=== PATIENT | female | born 1955 | race Caucasian/White ===

== ENCOUNTER → 2017-04-24 | Outpatient (CLI) | payer OTHER ==
[~2017-04-24] MED LIST: ACET500; ACET500 PO; AMLO10 PO; ASPI81EC PO; Acetaminophen325 M1 PO; BENZ100A PO; BUSP10 PO; CARV3.125 PO; CODACE30 PO; Cymbalta20 MG PO; DICL75ER PO; DICMIS50EC PO; DULERA 100 MCG/13 GM PO; Diclofenac Sod100 MG PO; FURO20 PO; FURO40 PO; GABA100 PO; GABA300 PO; GABA600 PO; HYDACE5325 PO; HYDCHL25 PO; HYDR1TAB94 PO; IBUP800 PO; LEVO750 PO; LISI20 PO; LISI5 PO; Lisinopril2.5 MG PO; METO25ER PO; METR500 PO; MIDO5 PO; Micro-K10 MEQ PO; NAPR500 PO; NICOTINE1 EAC1 TD; Norco 5-325 Ta1 EACH PO; Norco 7.5-3251 EACH PO; Norvasc5 MG PO; OMEP10ER PO; OMEP20ER PO; OMEP40CA12 PO; OXYACE5T PO; POTCHL10ER PO; POTCHL20ER PO; PRED10 PO; Percocet 5-3251 EACH PO; Prednisone10 MG PO; RANI150 PO; RXTRAM50 PO; Senexon8.6 MG PO; TOPI25 PO; TORSE20 PO; TRAM50 PO; TRAZ100 PO; TRAZ50 PO; Valium5 MG PO; Zofran Odt4 MG SL; [UNRECOGNIZED DRUG - CODE] PO
== END | disposition home or self-care (01) ==
LOC: LAB EV 12:51
DX: R82.90 Unspecified abnormal findings in urine (principal)
CPT/HCPCS: 87077; 87086; 87186

== ENCOUNTER 2017-08-16 08:11 | Inpatient (IN) | payer OTHER ==
[~2017-08-16] VITALS: Ht 175.3 cm; Wt 110.0 kg
[~2017-08-16 08:11] MED LIST changes: -Acetaminophen325 M1 PO; -Cymbalta20 MG PO; -Diclofenac Sod100 MG PO; -HYDR1TAB94 PO; -LISI5 PO; -Lisinopril2.5 MG PO; -METO25ER PO; -MIDO5 PO; -Micro-K10 MEQ PO; -NICOTINE1 EAC1 TD; -Senexon8.6 MG PO; -TOPI25 PO; -TRAZ100 PO; -[UNRECOGNIZED DRUG - CODE] PO
[2017-08-16 08:35] LABS: BASOPHILS PERCENT AUTO 1 % (0-2); EOSINOPHILS ABSOLUTE AUTO 0.35 K/mm3 (0.00-0.68); EOSINOPHILS PERCENT AUTO 2 % (0-6); Hematocrit 41.4 % (33.0-51.0); Hemoglobin 12.8 g/dL (11.5-16.0); IMMATURE GRAN ABSOLUTE AUTO 0.41 K/mm3 (0.00-0.10); IMMATURE GRAN PERCENT AUTO 3 % (0-1); LYMPHOCYTES ABSOLUTE AUTO 3.57 K/mm3 (0.84-5.20); LYMPHOCYTES PERCENT AUTO 23 % (21-46); MONOCYTES PERCENT AUTO 5 % (4-13); Mean Corpuscular HGB 29.1 pg (26.0-34.0); Mean Corpuscular HGB Conc 30.9 g/dL (31.5-36.5); Mean Corpuscular Volume 94 fL (80-100); Mean Platelet Volume 9.9 fL (9.1-12.4); NEUTROPHILS ABSOLUTE AUTO 10.01 K/mm3 (1.96-9.15); NEUTROPHILS PERCENT AUTO 66 % (41-73); NRBC ABSOLUTE 0.02 K/mm3 (0.00-0.02); NRBC Auto 0.1 /100 WBC (0.0-0.2); Platelet Count 200 K/mm3 (150-400); RDW Standard Deviation 48.2 fL (35.1-46.3); White Blood Cell Count 15.24 K/mm3 (4.00-11.30)
[2017-08-16 08:50] LABS: International Normalized Ratio 0.99; Prothrombin Time Results 10.3 Sec (9.7-11.5)
[2017-08-16 08:53] LABS: Alanine Aminotransfer (ALT/SGP 202 U/L (12-78); Albumin, Blood 3.1 g/dL (3.4-5.0); Alk Phos 68 U/L (50-136); Anion Gap 7 mmol/L (6-16); Aspartate Aminotrans (AST/SGOT 194 U/L (12-37); Bilirubin, Total 0.4 mg/dL (0.1-1.0); Blood Urea Nitrogen 22 mg/dL (8-24); Bun/Creatinine Ratio 25.9 (12.0-20.0); CO2, Blood 20 mmol/L (21-32); Calcium, Blood 8.4 mg/dL (8.5-10.1); Chloride, Blood 114 mmol/L (98-108); Creatinine, Blood 0.85 mg/dL (0.40-1.00); Globulin, Blood 3.2 g/dL (2.2-4.0); Glomerular Filtration Rate >60 (60-); Glucose, Blood 144 mg/dL (70-99); Potassium, Blood 3.9 mmol/L (3.5-5.5); Sodium, Blood 141 mmol/L (136-145); Total Protein, Blood 6.3 g/dL (6.4-8.2)
[2017-08-16 09:02] LABS: PCO2 Arterial 37.8 mmHg (35-45); PO2 Arterial 105 mmHg (80-100); pH Blood Arterial 7.35 (7.35-7.45)
[2017-08-16 09:20] LABS: Calcium, Ionized (POC) 1.18 mmol/L (1.10-1.46); Chloride (POC) 107 mmol/L (98-108); Creatinine (POC) 0.8 mg/dL (0.6-1.0); Glucose (ISTAT POC) 139 mg/dL (70-99); Hemoglobin (POC) 13.6 g/dL (12.0-16.0); Potassium (POC) 3.9 mmol/L (3.5-5.5); Sodium (POC) 141 mmol/L (135-148); Total CO2 (POC) 22 mmol/L (21-32)
[2017-08-16] MEDS ORDERED: HYDR1TAB94 PO (10:44)
[2017-08-16] MEDS ORDERED: TOPI25 PO (10:45)
[2017-08-16] MEDS ORDERED: Diclofenac Sod100 MG PO (10:45)
[2017-08-16] MEDS ORDERED: RANI150 PO (10:45)
[2017-08-16 10:50] LABS: U Amphetamine Screen Not Detected; U Barbituate Screen Not Detected; U Benzodiazapine Screen Not Detected; U Buprenorphine Screen Not Detected; U Cannabinoids Screen Not Detected; U Cocaine Screen Not Detected; U Methadone Screen Not Detected; U Methamphetamine Screen Not Detected; U Opiates Screen Not Detected; U Oxycodone Screen Not Detected; U Phencyclidine Screen Not Detected
[2017-08-16 10:51] LABS: U Propoxyphene Screen Not Detected
[2017-08-16 21:45] LABS: International Normalized Ratio 0.98; Prothrombin Time Results 10.2 Sec (9.7-11.5)
[2017-08-16 21:52] LABS: Anion Gap 7 mmol/L (6-16); Blood Urea Nitrogen 19 mg/dL (8-24); Bun/Creatinine Ratio 22.6 (12.0-20.0); CO2, Blood 22 mmol/L (21-32); Calcium, Blood 8.6 mg/dL (8.5-10.1); Chloride, Blood 115 mmol/L (98-108); Creatinine, Blood 0.84 mg/dL (0.40-1.00); Glomerular Filtration Rate >60 (60-); Glucose, Blood 95 mg/dL (70-99); Magnesium, Blood 2.3 mg/dL (1.6-2.4); Phosphorus, Blood 3.2 mg/dL (2.5-4.9); Potassium, Blood 3.7 mmol/L (3.5-5.5); Sodium, Blood 144 mmol/L (136-145)
[2017-08-16 22:04] LABS: Troponin I 0.733 ng/mL (0.000-0.040)
[2017-08-16 22:18] LABS: BASOPHILS ABSOLUTE AUTO 0.05 K/mm3 (0.00-0.23); BASOPHILS PERCENT AUTO 1 % (0-2); EOSINOPHILS PERCENT AUTO 1 % (0-6); Hematocrit 37.3 % (33.0-51.0); Hemoglobin 11.8 g/dL (11.5-16.0); IMMATURE GRAN ABSOLUTE AUTO 0.07 K/mm3 (0.00-0.10); IMMATURE GRAN PERCENT AUTO 1 % (0-1); LYMPHOCYTES ABSOLUTE AUTO 1.39 K/mm3 (0.84-5.20); LYMPHOCYTES PERCENT AUTO 16 % (21-46); MONOCYTES ABSOLUTE AUTO 0.82 K/mm3 (0.16-1.47); MONOCYTES PERCENT AUTO 9 % (4-13); Mean Corpuscular HGB 29.3 pg (26.0-34.0); Mean Corpuscular HGB Conc 31.6 g/dL (31.5-36.5); Mean Corpuscular Volume 93 fL (80-100); Mean Platelet Volume 9.4 fL (9.1-12.4); NEUTROPHILS ABSOLUTE AUTO 6.34 K/mm3 (1.96-9.15); NEUTROPHILS PERCENT AUTO 72 % (41-73); Platelet Count 172 K/mm3 (150-400); RDW Coefficient Variation 14.1 % (11.7-14.2); RDW Standard Deviation 48.1 fL (35.1-46.3); Red Blood Cell Count 4.03 M/mm3 (3.80-5.20); White Blood Cell Count 8.77 K/mm3 (4.00-11.30)
[2017-08-17 03:11] LABS: BASOPHILS ABSOLUTE AUTO 0.04 K/mm3 (0.00-0.23); BASOPHILS PERCENT AUTO 1 % (0-2); EOSINOPHILS ABSOLUTE AUTO 0.11 K/mm3 (0.00-0.68); EOSINOPHILS PERCENT AUTO 1 % (0-6); Hematocrit 45.7 % (33.0-51.0); Hemoglobin 14.8 g/dL (11.5-16.0); IMMATURE GRAN ABSOLUTE AUTO 0.05 K/mm3 (0.00-0.10); IMMATURE GRAN PERCENT AUTO 1 % (0-1); LYMPHOCYTES ABSOLUTE AUTO 1.17 K/mm3 (0.84-5.20); LYMPHOCYTES PERCENT AUTO 14 % (21-46); MONOCYTES ABSOLUTE AUTO 0.79 K/mm3 (0.16-1.47); MONOCYTES PERCENT AUTO 9 % (4-13); Mean Corpuscular HGB 29.4 pg (26.0-34.0); Mean Corpuscular HGB Conc 32.4 g/dL (31.5-36.5); Mean Corpuscular Volume 91 fL (80-100); NEUTROPHILS ABSOLUTE AUTO 6.38 K/mm3 (1.96-9.15); NEUTROPHILS PERCENT AUTO 75 % (41-73); RDW Coefficient Variation 14.1 % (11.7-14.2); RDW Standard Deviation 46.9 fL (35.1-46.3); Red Blood Cell Count 5.03 M/mm3 (3.80-5.20); White Blood Cell Count 8.54 K/mm3 (4.00-11.30)
[2017-08-17 03:14] LABS: Mean Platelet Volume 11.6 fL (9.1-12.4); Platelet Count 71 K/mm3 (150-400)
[2017-08-17 03:35] LABS: Alanine Aminotransfer (ALT/SGP 176 U/L (12-78); Albumin, Blood 3.1 g/dL (3.4-5.0); Alk Phos 72 U/L (50-136); Anion Gap 7 mmol/L (6-16); Aspartate Aminotrans (AST/SGOT 100 U/L (12-37); Bilirubin, Total 0.4 mg/dL (0.1-1.0); Blood Urea Nitrogen 16 mg/dL (8-24); CO2, Blood 24 mmol/L (21-32); Calcium, Blood 8.5 mg/dL (8.5-10.1); Chloride, Blood 114 mmol/L (98-108); Creatinine, Blood 0.67 mg/dL (0.40-1.00); Globulin, Blood 3.2 g/dL (2.2-4.0); Glomerular Filtration Rate >60 (60-); Glucose, Blood 111 mg/dL (70-99); Potassium, Blood 3.3 mmol/L (3.5-5.5); Sodium, Blood 145 mmol/L (136-145); Total Protein, Blood 6.3 g/dL (6.4-8.2); Troponin I 0.444 ng/mL (0.000-0.040)
[2017-08-17 05:08] LABS: PCO2 Arterial 34.7 mmHg (35-45); PO2 Arterial 77.1 mmHg (80-100); pH Blood Arterial 7.41 (7.35-7.45)
[2017-08-17 10:30] LABS: BASOPHILS ABSOLUTE AUTO 0.02 K/mm3 (0.00-0.23); BASOPHILS PERCENT AUTO 0 % (0-2); EOSINOPHILS ABSOLUTE AUTO 0.04 K/mm3 (0.00-0.68); EOSINOPHILS PERCENT AUTO 1 % (0-6); Hematocrit 43.3 % (33.0-51.0); Hemoglobin 14.2 g/dL (11.5-16.0); IMMATURE GRAN ABSOLUTE AUTO 0.05 K/mm3 (0.00-0.10); IMMATURE GRAN PERCENT AUTO 1 % (0-1); LYMPHOCYTES ABSOLUTE AUTO 0.71 K/mm3 (0.84-5.20); LYMPHOCYTES PERCENT AUTO 10 % (21-46); MONOCYTES ABSOLUTE AUTO 0.46 K/mm3 (0.16-1.47); MONOCYTES PERCENT AUTO 6 % (4-13); Mean Corpuscular HGB 29.2 pg (26.0-34.0); Mean Corpuscular HGB Conc 32.8 g/dL (31.5-36.5); Mean Corpuscular Volume 89 fL (80-100); NEUTROPHILS ABSOLUTE AUTO 5.91 K/mm3 (1.96-9.15); NEUTROPHILS PERCENT AUTO 82 % (41-73); RDW Coefficient Variation 13.9 % (11.7-14.2); RDW Standard Deviation 45.1 fL (35.1-46.3); Red Blood Cell Count 4.86 M/mm3 (3.80-5.20); White Blood Cell Count 7.19 K/mm3 (4.00-11.30)
[2017-08-17 10:34] LABS: Mean Platelet Volume 10.3 fL (9.1-12.4); Platelet Count 107 K/mm3 (150-400)
[2017-08-17 10:38] LABS: International Normalized Ratio 0.98; Prothrombin Time Results 10.2 Sec (9.7-11.5)
[2017-08-17 11:49] LABS: Anion Gap 11 mmol/L (6-16); Blood Urea Nitrogen 13 mg/dL (8-24); Bun/Creatinine Ratio 21.5 (12.0-20.0); CO2, Blood 21 mmol/L (21-32); Calcium, Blood 8.5 mg/dL (8.5-10.1); Chloride, Blood 116 mmol/L (98-108); Creatinine, Blood 0.61 mg/dL (0.40-1.00); Glomerular Filtration Rate >60 (60-); Glucose, Blood 94 mg/dL (70-99); Potassium, Blood 2.8 mmol/L (3.5-5.5); Sodium, Blood 148 mmol/L (136-145)
[2017-08-18 04:18] LABS: BASOPHILS ABSOLUTE AUTO 0.03 K/mm3 (0.00-0.23); BASOPHILS PERCENT AUTO 0 % (0-2); EOSINOPHILS ABSOLUTE AUTO 0.06 K/mm3 (0.00-0.68); EOSINOPHILS PERCENT AUTO 1 % (0-6); Hematocrit 39.8 % (33.0-51.0); Hemoglobin 12.8 g/dL (11.5-16.0); IMMATURE GRAN ABSOLUTE AUTO 0.04 K/mm3 (0.00-0.10); IMMATURE GRAN PERCENT AUTO 1 % (0-1); LYMPHOCYTES ABSOLUTE AUTO 1.01 K/mm3 (0.84-5.20); LYMPHOCYTES PERCENT AUTO 12 % (21-46); MONOCYTES ABSOLUTE AUTO 0.65 K/mm3 (0.16-1.47); MONOCYTES PERCENT AUTO 7 % (4-13); Mean Corpuscular HGB 28.7 pg (26.0-34.0); Mean Corpuscular HGB Conc 32.2 g/dL (31.5-36.5); Mean Corpuscular Volume 89 fL (80-100); NEUTROPHILS ABSOLUTE AUTO 7.01 K/mm3 (1.96-9.15); NEUTROPHILS PERCENT AUTO 80 % (41-73); Platelet Count 166 K/mm3 (150-400); RDW Coefficient Variation 14.6 % (11.7-14.2); RDW Standard Deviation 46.5 fL (35.1-46.3); Red Blood Cell Count 4.46 M/mm3 (3.80-5.20)
[2017-08-18 04:36] LABS: Anion Gap 6 mmol/L (6-16); Blood Urea Nitrogen 10 mg/dL (8-24); Bun/Creatinine Ratio 13.3 (12.0-20.0); CO2, Blood 23 mmol/L (21-32); Chloride, Blood 121 mmol/L (98-108); Creatinine, Blood 0.75 mg/dL (0.40-1.00); Glomerular Filtration Rate >60 (60-); Glucose, Blood 98 mg/dL (70-99); Sodium, Blood 150 mmol/L (136-145)
[2017-08-18 05:15] LABS: PCO2 Arterial 33.1 mmHg (35-45); PO2 Arterial 87.4 mmHg (80-100)
[2017-08-18 11:43] LABS: Anion Gap 7 mmol/L (6-16); Blood Urea Nitrogen 9 mg/dL (8-24); Bun/Creatinine Ratio 12.7 (12.0-20.0); CO2, Blood 22 mmol/L (21-32); Calcium, Blood 8.1 mg/dL (8.5-10.1); Chloride, Blood 118 mmol/L (98-108); Creatinine, Blood 0.71 mg/dL (0.40-1.00); Glomerular Filtration Rate >60 (60-); Glucose, Blood 91 mg/dL (70-99); Potassium, Blood 3.6 mmol/L (3.5-5.5); Sodium, Blood 147 mmol/L (136-145)
[2017-08-19 04:51] LABS: BASOPHILS ABSOLUTE AUTO 0.03 K/mm3 (0.00-0.23); BASOPHILS PERCENT AUTO 1 % (0-2); EOSINOPHILS PERCENT AUTO 2 % (0-6); Hematocrit 34.2 % (33.0-51.0); IMMATURE GRAN ABSOLUTE AUTO 0.02 K/mm3 (0.00-0.10); IMMATURE GRAN PERCENT AUTO 0 % (0-1); LYMPHOCYTES ABSOLUTE AUTO 1.47 K/mm3 (0.84-5.20); LYMPHOCYTES PERCENT AUTO 27 % (21-46); MONOCYTES ABSOLUTE AUTO 0.53 K/mm3 (0.16-1.47); MONOCYTES PERCENT AUTO 10 % (4-13); Mean Corpuscular HGB 28.9 pg (26.0-34.0); Mean Corpuscular HGB Conc 32.2 g/dL (31.5-36.5); Mean Corpuscular Volume 90 fL (80-100); Mean Platelet Volume 10.5 fL (9.1-12.4); NEUTROPHILS PERCENT AUTO 61 % (41-73); Platelet Count 135 K/mm3 (150-400); RDW Coefficient Variation 14.6 % (11.7-14.2); RDW Standard Deviation 47.8 fL (35.1-46.3); Red Blood Cell Count 3.81 M/mm3 (3.80-5.20); White Blood Cell Count 5.55 K/mm3 (4.00-11.30)
[2017-08-19 05:39] LABS: Alanine Aminotransfer (ALT/SGP 80 U/L (12-78); Albumin, Blood 2.3 g/dL (3.4-5.0); Albumin/Globulin Ratio 0.8 (0.8-1.8); Alk Phos 46 U/L (50-136); Anion Gap 9 mmol/L (6-16); Aspartate Aminotrans (AST/SGOT 20 U/L (12-37); Bilirubin, Total 0.5 mg/dL (0.1-1.0); Blood Urea Nitrogen 7 mg/dL (8-24); Bun/Creatinine Ratio 9.7 (12.0-20.0); CO2, Blood 22 mmol/L (21-32); Calcium, Blood 7.9 mg/dL (8.5-10.1); Chloride, Blood 118 mmol/L (98-108); Creatinine, Blood 0.72 mg/dL (0.40-1.00); Globulin, Blood 2.9 g/dL (2.2-4.0); Glomerular Filtration Rate >60 (60-); Glucose, Blood 85 mg/dL (70-99); Magnesium, Blood 1.8 mg/dL (1.6-2.4); Potassium, Blood 3.6 mmol/L (3.5-5.5); Sodium, Blood 149 mmol/L (136-145); Total Protein, Blood 5.2 g/dL (6.4-8.2)
[2017-08-19] MEDS ORDERED: FURO20 PO (13:33)
[2017-08-19] MEDS ORDERED: Micro-K10 MEQ PO (13:35)
[2017-08-19] MEDS ORDERED: TRAZ100 PO (13:37)
[2017-08-19] MEDS ORDERED: TRAM50 PO (13:49)
[2017-08-20 03:38] LABS: BASOPHILS ABSOLUTE AUTO 0.04 K/mm3 (0.00-0.23); BASOPHILS PERCENT AUTO 1 % (0-2); EOSINOPHILS ABSOLUTE AUTO 0.13 K/mm3 (0.00-0.68); EOSINOPHILS PERCENT AUTO 2 % (0-6); Hematocrit 33.9 % (33.0-51.0); Hemoglobin 10.8 g/dL (11.5-16.0); IMMATURE GRAN ABSOLUTE AUTO 0.02 K/mm3 (0.00-0.10); IMMATURE GRAN PERCENT AUTO 0 % (0-1); LYMPHOCYTES ABSOLUTE AUTO 1.59 K/mm3 (0.84-5.20); LYMPHOCYTES PERCENT AUTO 25 % (21-46); MONOCYTES PERCENT AUTO 10 % (4-13); Mean Corpuscular HGB 29.2 pg (26.0-34.0); Mean Corpuscular HGB Conc 31.9 g/dL (31.5-36.5); Mean Corpuscular Volume 92 fL (80-100); NEUTROPHILS ABSOLUTE AUTO 3.87 K/mm3 (1.96-9.15); NEUTROPHILS PERCENT AUTO 62 % (41-73); RDW Coefficient Variation 14.3 % (11.7-14.2); White Blood Cell Count 6.25 K/mm3 (4.00-11.30)
[2017-08-20 03:45] LABS: Mean Platelet Volume 10.6 fL (9.1-12.4); Platelet Count 89 K/mm3 (150-400)
[2017-08-20 04:03] LABS: Alanine Aminotransfer (ALT/SGP 83 U/L (12-78); Albumin, Blood 2.4 g/dL (3.4-5.0); Albumin/Globulin Ratio 0.8 (0.8-1.8); Alk Phos 46 U/L (50-136); Anion Gap 4 mmol/L (6-16); Aspartate Aminotrans (AST/SGOT 37 U/L (12-37); Bilirubin, Total 0.4 mg/dL (0.1-1.0); Blood Urea Nitrogen 18 mg/dL (8-24); Bun/Creatinine Ratio 23.3 (12.0-20.0); CO2, Blood 25 mmol/L (21-32); Calcium, Blood 8.3 mg/dL (8.5-10.1); Chloride, Blood 116 mmol/L (98-108); Creatinine, Blood 0.77 mg/dL (0.40-1.00); Glomerular Filtration Rate >60 (60-); Glucose, Blood 87 mg/dL (70-99); Sodium, Blood 145 mmol/L (136-145); Total Protein, Blood 5.4 g/dL (6.4-8.2)
== END 2017-08-20 14:17 | disposition short-term general hospital (02) | DRG 296 ==
LOC: ER 08:11 → ICUW 10:03
PROVIDERS: Emergency Medicine; Internal Medicine; Internal Medicine Critical Care Medicine; Internal Medicine Pulmonary Disease
PROC: 0BH17EZ Insertion of Endotracheal Airway into Trachea, Via Natural or Artificial Opening (ICD-10-PCS; principal; 2017-08-16)
PROC: 5A1935Z Respiratory Ventilation, Less than 24 Consecutive Hours (ICD-10-PCS; 2017-08-16)
DX: I46.9 Cardiac arrest, cause unspecified (principal); R40.20 Unspecified coma; J96.01 Acute respiratory failure with hypoxia; J18.9 Pneumonia, unspecified organism; E87.0 Hyperosmolality and hypernatremia; I50.22 Chronic systolic (congestive) heart failure; F15.20 Other stimulant dependence, uncomplicated; I42.9 Cardiomyopathy, unspecified; E87.1 Hypo-osmolality and hyponatremia; I49.01 Ventricular fibrillation; I10 Essential (primary) hypertension; K21.9 Gastro-esophageal reflux disease without esophagitis; I25.2 Old myocardial infarction
CPT/HCPCS: 31500; 31720; 36415; 36569; 36600; 51702; 70450; 71045; 72125; 80047; 80048; 80053; 82803; 82947; 83605; 83735; 84100; 84145; 84484; 85014; 85025; 85610; 85730; 87040; 87070; 87205; 93005; 93010; 93306; 93308; 94002; 94003; 94762; 96365; 96375; 99291; 99292; C1751; C9113; J0330; J0360; J1650; J1885; J2060; J2250; J2543; J3010; J3480; J7030; J7050

== ENCOUNTER → 2017-08-28 | Outpatient (CLI) | payer OTHER ==
[~2017-08-28] MED LIST changes: +Diclofenac Sod100 MG PO; +HYDR1TAB94 PO; +Micro-K10 MEQ PO; +TOPI25 PO; +TRAZ100 PO
[2017-08-28 14:17] LABS: Albumin, Blood 3.4 g/dL (3.4-5.0); Albumin/Globulin Ratio 0.8 (0.8-1.8); Bilirubin, Total 0.4 mg/dL (0.1-1.0); Bun/Creatinine Ratio 29.2 (12.0-20.0); Calcium, Blood 9.2 mg/dL (8.5-10.1); Creatinine, Blood 0.96 mg/dL (0.40-1.00); Globulin, Blood 4.1 g/dL (2.2-4.0); Potassium, Blood 3.8 mmol/L (3.5-5.5); Total Protein, Blood 7.5 g/dL (6.4-8.2)
== END ==
LOC: LAB SHORT 13:55 → LAB EV 13:55
PROVIDERS: Physician Assistant
DX: E87.5 Hyperkalemia (principal)
CPT/HCPCS: 80053

== ENCOUNTER 2017-10-30 13:36 | Emergency (ER) | payer MEDICARE, OTHER ==
[~2017-10-30] VITALS: Ht 170.2 cm; Wt 104.3 kg
[2017-10-30 14:11] LABS: BASOPHILS ABSOLUTE AUTO 0.06 K/mm3 (0.00-0.23); BASOPHILS PERCENT AUTO 1 % (0-2); EOSINOPHILS ABSOLUTE AUTO 0.35 K/mm3 (0.00-0.68); EOSINOPHILS PERCENT AUTO 5 % (0-6); Hematocrit 40.9 % (33.0-51.0); Hemoglobin 13.3 g/dL (11.5-16.0); IMMATURE GRAN ABSOLUTE AUTO 0.02 K/mm3 (0.00-0.10); IMMATURE GRAN PERCENT AUTO 0 % (0-1); LYMPHOCYTES ABSOLUTE AUTO 1.79 K/mm3 (0.84-5.20); LYMPHOCYTES PERCENT AUTO 26 % (21-46); MONOCYTES ABSOLUTE AUTO 0.49 K/mm3 (0.16-1.47); MONOCYTES PERCENT AUTO 7 % (4-13); Mean Corpuscular HGB 30.3 pg (26.0-34.0); Mean Corpuscular HGB Conc 32.5 g/dL (31.5-36.5); Mean Corpuscular Volume 93 fL (80-100); Mean Platelet Volume 10.8 fL (9.1-12.4); NEUTROPHILS ABSOLUTE AUTO 4.21 K/mm3 (1.96-9.15); NEUTROPHILS PERCENT AUTO 61 % (41-73); Platelet Count 149 K/mm3 (150-400); RDW Coefficient Variation 13.3 % (11.7-14.2); RDW Standard Deviation 45.5 fL (35.1-46.3); Red Blood Cell Count 4.39 M/mm3 (3.80-5.20); White Blood Cell Count 6.92 K/mm3 (4.00-11.30)
[2017-10-30 14:26] LABS: Alanine Aminotransfer (ALT/SGP 16 U/L (12-78); Albumin/Globulin Ratio 0.9 (0.8-1.8); Alk Phos 58 U/L (50-136); Anion Gap 8 mmol/L (6-16); Aspartate Aminotrans (AST/SGOT 17 U/L (12-37); Bilirubin, Total 0.3 mg/dL (0.1-1.0); Blood Urea Nitrogen 14 mg/dL (8-24); Bun/Creatinine Ratio 19.3 (12.0-20.0); CO2, Blood 25 mmol/L (21-32); Calcium, Blood 8.5 mg/dL (8.5-10.1); Chloride, Blood 110 mmol/L (98-108); Creatinine, Blood 0.73 mg/dL (0.40-1.00); Globulin, Blood 3.2 g/dL (2.2-4.0); Glomerular Filtration Rate >60 (60-); Glucose, Blood 103 mg/dL (70-99); Potassium, Blood 3.6 mmol/L (3.5-5.5); Sodium, Blood 143 mmol/L (136-145); Total Protein, Blood 6.2 g/dL (6.4-8.2); Troponin I <0.015 ng/mL (0.000-0.040)
== END 2017-10-30 16:05 | disposition home or self-care (01) ==
LOC: ER 13:36
PROVIDERS: Emergency Medicine
DX: R53.1 Weakness (principal); M54.2 Cervicalgia; R51 Headache; I10 Essential (primary) hypertension; K21.9 Gastro-esophageal reflux disease without esophagitis; F17.290 Nicotine dependence, other tobacco product, uncomplicated; Z79.899 Other long term (current) drug therapy; Z95.810 Presence of automatic (implantable) cardiac defibrillator
CPT/HCPCS: 36415; 70450; 71045; 80053; 84484; 85025; 93005; 93010; 99284

== ENCOUNTER 2017-12-14 08:36 | Day surgery (SDC) | payer MEDICARE, OTHER | END 2017-12-14 22:37 | disposition home or self-care (01) | LOC: RAD 08:36 | PROC: BP281ZZ Computerized Tomography (CT Scan) of Right Shoulder using Low Osmolar Contrast (ICD-10-PCS; principal; 2017-12-14) | DX: S46.811A Strain of other muscles, fascia and tendons at shoulder and upper arm level, right arm, initial encounter (principal); M12.811 Other specific arthropathies, not elsewhere classified, right shoulder; S22.31XD Fracture of one rib, right side, subsequent encounter for fracture with routine healing | CPT/HCPCS: 20610; 23350; 73040; 73201; 77002; Q9967 ==

== ENCOUNTER 2018-01-16 06:10 | Day surgery (SDC) | payer MEDICARE, OTHER ==
[~2018-01-16] VITALS: Ht 170.2 cm; Wt 108.9 kg
[2018-01-16] MEDS ORDERED: METO25ER PO (06:44)
[2018-01-16] MEDS ORDERED: Cymbalta20 MG (06:44)
[2018-01-16] MEDS ORDERED: Lisinopril2.5 MG (06:47)
[2018-01-16] MEDS ORDERED: TORSE20 PO (06:47)
[2018-01-16] MEDS ORDERED: Senexon8.6 MG PO (06:48)
== END 2018-01-16 14:00 | disposition home or self-care (01) ==
LOC: ORSCSDS 06:10
PROVIDERS: Orthopaedic Surgery
PROC: 0LS14ZZ Reposition Right Shoulder Tendon, Percutaneous Endoscopic Approach (ICD-10-PCS; principal; 2018-01-16 07:30)
PROC: 0RNJ4ZZ Release Right Shoulder Joint, Percutaneous Endoscopic Approach (ICD-10-PCS; principal; 2018-01-16 07:30)
PROC: 0LQ14ZZ Repair Right Shoulder Tendon, Percutaneous Endoscopic Approach (ICD-10-PCS; principal; 2018-01-16 07:30)
DX: M75.111 Incomplete rotator cuff tear or rupture of right shoulder, not specified as traumatic (principal); M75.41 Impingement syndrome of right shoulder; S46.111A Strain of muscle, fascia and tendon of long head of biceps, right arm, initial encounter; I10 Essential (primary) hypertension; I50.9 Heart failure, unspecified; G47.33 Obstructive sleep apnea (adult) (pediatric); E66.01 Morbid (severe) obesity due to excess calories; Z68.37 Body mass index [BMI] 37.0-37.9, adult; Z79.899 Other long term (current) drug therapy
CPT/HCPCS: C1713; J0690; J1100; J1885; J2250; J2405; J2710; J3010; J7120

== ENCOUNTER 2018-02-24 19:15 | Observation (INO) | payer MEDICARE, OTHER ==
[~2018-02-24] VITALS: Ht 170.2 cm; Wt 104.3 kg
[~2018-02-24 19:15] MED LIST changes: +Cymbalta20 MG PO; +Lisinopril2.5 MG PO; +METO25ER PO; +Senexon8.6 MG PO
[2018-02-24 20:06] LABS: BASOPHILS ABSOLUTE AUTO 0.05 K/mm3 (0.00-0.23); BASOPHILS PERCENT AUTO 1 % (0-2); EOSINOPHILS ABSOLUTE AUTO 0.31 K/mm3 (0.00-0.68); EOSINOPHILS PERCENT AUTO 4 % (0-6); Hemoglobin 14.9 g/dL (11.5-16.0); IMMATURE GRAN ABSOLUTE AUTO 0.02 K/mm3 (0.00-0.10); IMMATURE GRAN PERCENT AUTO 0 % (0-1); LYMPHOCYTES ABSOLUTE AUTO 2.08 K/mm3 (0.84-5.20); LYMPHOCYTES PERCENT AUTO 30 % (21-46); MONOCYTES ABSOLUTE AUTO 0.48 K/mm3 (0.16-1.47); MONOCYTES PERCENT AUTO 7 % (4-13); Mean Corpuscular HGB 30.2 pg (26.0-34.0); Mean Corpuscular HGB Conc 32.4 g/dL (31.5-36.5); Mean Corpuscular Volume 93 fL (80-100); NEUTROPHILS ABSOLUTE AUTO 4.03 K/mm3 (1.96-9.15); NEUTROPHILS PERCENT AUTO 58 % (41-73); RDW Coefficient Variation 13.5 % (11.7-14.2); RDW Standard Deviation 45.7 fL (35.1-46.3); Red Blood Cell Count 4.94 M/mm3 (3.80-5.20); White Blood Cell Count 6.97 K/mm3 (4.00-11.30)
[2018-02-24 20:25] LABS: Alanine Aminotransfer (ALT/SGP 19 U/L (12-78); Albumin, Blood 3.5 g/dL (3.4-5.0); Alk Phos 56 U/L (50-136); Anion Gap 9 mmol/L (6-16); Aspartate Aminotrans (AST/SGOT 15 U/L (12-37); Bilirubin, Total 0.4 mg/dL (0.1-1.0); Blood Urea Nitrogen 15 mg/dL (8-24); Bun/Creatinine Ratio 17.7 (12.0-20.0); CO2, Blood 27 mmol/L (21-32); Calcium, Blood 9.1 mg/dL (8.5-10.1); Chloride, Blood 105 mmol/L (98-108); Creatinine, Blood 0.85 mg/dL (0.40-1.00); Globulin, Blood 3.5 g/dL (2.2-4.0); Glomerular Filtration Rate >60 (60-); Glucose, Blood 97 mg/dL (70-99); Potassium, Blood 3.4 mmol/L (3.5-5.5); Sodium, Blood 141 mmol/L (136-145); Troponin I <0.015 ng/mL (0.000-0.040)
[2018-02-24 20:34] LABS: Mean Platelet Volume 12.2 fL (9.1-12.4); Platelet Count 116 K/mm3 (150-400)
[2018-02-25 02:58] LABS: BASOPHILS ABSOLUTE AUTO 0.04 K/mm3 (0.00-0.23); BASOPHILS PERCENT AUTO 1 % (0-2); EOSINOPHILS ABSOLUTE AUTO 0.33 K/mm3 (0.00-0.68); EOSINOPHILS PERCENT AUTO 5 % (0-6); Hematocrit 40.9 % (33.0-51.0); Hemoglobin 13.3 g/dL (11.5-16.0); IMMATURE GRAN ABSOLUTE AUTO 0.02 K/mm3 (0.00-0.10); IMMATURE GRAN PERCENT AUTO 0 % (0-1); LYMPHOCYTES PERCENT AUTO 37 % (21-46); MONOCYTES ABSOLUTE AUTO 0.52 K/mm3 (0.16-1.47); MONOCYTES PERCENT AUTO 8 % (4-13); Mean Corpuscular HGB 30.5 pg (26.0-34.0); Mean Corpuscular HGB Conc 32.5 g/dL (31.5-36.5); Mean Corpuscular Volume 94 fL (80-100); NEUTROPHILS ABSOLUTE AUTO 3.22 K/mm3 (1.96-9.15); NEUTROPHILS PERCENT AUTO 49 % (41-73); Platelet Count 158 K/mm3 (150-400); RDW Coefficient Variation 13.5 % (11.7-14.2); RDW Standard Deviation 46.5 fL (35.1-46.3); Red Blood Cell Count 4.36 M/mm3 (3.80-5.20); White Blood Cell Count 6.53 K/mm3 (4.00-11.30)
[2018-02-25 03:28] LABS: Anion Gap 8 mmol/L (6-16); Blood Urea Nitrogen 20 mg/dL (8-24); Bun/Creatinine Ratio 23.4 (12.0-20.0); CO2, Blood 27 mmol/L (21-32); Calcium, Blood 8.7 mg/dL (8.5-10.1); Chloride, Blood 106 mmol/L (98-108); Creatinine, Blood 0.86 mg/dL (0.40-1.00); Glomerular Filtration Rate >60 (60-); Glucose, Blood 96 mg/dL (70-99); Potassium, Blood 3.6 mmol/L (3.5-5.5); Sodium, Blood 141 mmol/L (136-145)
[2018-02-27] MEDS ORDERED: MIDO5 PO (13:21)
[2018-02-27] MEDS ORDERED: Acetaminophen325 M1 PO (13:22)
[2018-02-27] MEDS ORDERED: NICOTINE1 EAC1 TD (13:23)
== END 2018-02-27 14:00 | disposition home or self-care (01) ==
LOC: ER 19:15 → MEDS 19:16
PROVIDERS: Emergency Medicine; Internal Medicine
DX: R07.89 Other chest pain (principal); I95.1 Orthostatic hypotension; R06.02 Shortness of breath; R79.1 Abnormal coagulation profile; I47.2 Ventricular tachycardia; R29.6 Repeated falls; I10 Essential (primary) hypertension; K21.9 Gastro-esophageal reflux disease without esophagitis; F32.9 Major depressive disorder, single episode, unspecified; G62.9 Polyneuropathy, unspecified; M19.90 Unspecified osteoarthritis, unspecified site; M51.36 Other intervertebral disc degeneration, lumbar region; E87.6 Hypokalemia; J45.909 Unspecified asthma, uncomplicated; M06.9 Rheumatoid arthritis, unspecified; F17.200 Nicotine dependence, unspecified, uncomplicated; I11.0 Hypertensive heart disease with heart failure; I50.9 Heart failure, unspecified; G47.00 Insomnia, unspecified; Z79.899 Other long term (current) drug therapy; Z23 Encounter for immunization
CPT/HCPCS: 36415; 71046; 71260; 80048; 80053; 83880; 84443; 84484; 85025; 85379; 90686; 93005; 93010; 96372; 97162; 97530; 99285-25; G0378; G8978; G8979; G8980; J1650; Q9967

== ENCOUNTER 2018-04-09 17:47 | Observation (INO) | payer MEDICARE, OTHER ==
[~2018-04-09] VITALS: Ht 167.6 cm; Wt 111.7 kg
[~2018-04-09 17:47] MED LIST changes: +Acetaminophen325 M1 PO; +MIDO5 PO; +NICOTINE1 EAC1 TD
[2018-04-09 18:39] LABS: BASOPHILS ABSOLUTE AUTO 0.06 K/mm3 (0.00-0.23); BASOPHILS PERCENT AUTO 1 % (0-2); EOSINOPHILS ABSOLUTE AUTO 0.31 K/mm3 (0.00-0.68); EOSINOPHILS PERCENT AUTO 4 % (0-6); Hematocrit 44.3 % (33.0-51.0); Hemoglobin 14.6 g/dL (11.5-16.0); IMMATURE GRAN ABSOLUTE AUTO 0.04 K/mm3 (0.00-0.10); IMMATURE GRAN PERCENT AUTO 1 % (0-1); LYMPHOCYTES ABSOLUTE AUTO 2.16 K/mm3 (0.84-5.20); LYMPHOCYTES PERCENT AUTO 29 % (21-46); MONOCYTES ABSOLUTE AUTO 0.62 K/mm3 (0.16-1.47); MONOCYTES PERCENT AUTO 8 % (4-13); Mean Corpuscular HGB 31.1 pg (26.0-34.0); Mean Corpuscular Volume 95 fL (80-100); NEUTROPHILS ABSOLUTE AUTO 4.23 K/mm3 (1.96-9.15); NEUTROPHILS PERCENT AUTO 57 % (41-73); RDW Coefficient Variation 12.9 % (11.7-14.2); RDW Standard Deviation 45.3 fL (35.1-46.3); Red Blood Cell Count 4.69 M/mm3 (3.80-5.20); White Blood Cell Count 7.42 K/mm3 (4.00-11.30)
[2018-04-09 18:45] LABS: Alanine Aminotransfer (ALT/SGP 31 U/L (12-78); Albumin, Blood 3.4 g/dL (3.4-5.0); Alk Phos 58 U/L (50-136); Anion Gap 9 mmol/L (6-16); Aspartate Aminotrans (AST/SGOT 20 U/L (12-37); Bilirubin, Total 0.3 mg/dL (0.1-1.0); Blood Urea Nitrogen 21 mg/dL (8-24); Bun/Creatinine Ratio 23.9 (12.0-20.0); CO2, Blood 23 mmol/L (21-32); Chloride, Blood 110 mmol/L (98-108); Creatinine, Blood 0.88 mg/dL (0.40-1.00); Globulin, Blood 3.4 g/dL (2.2-4.0); Glomerular Filtration Rate >60 (60-); Glucose, Blood 68 mg/dL (70-99); Potassium, Blood 3.8 mmol/L (3.5-5.5); Sodium, Blood 142 mmol/L (136-145); Total Protein, Blood 6.8 g/dL (6.4-8.2); Troponin I <0.015 ng/mL (0.000-0.040)
[2018-04-09 19:11] LABS: Platelet Count 138 K/mm3 (150-400)
[2018-04-09] MEDS ORDERED: [UNRECOGNIZED DRUG - CODE] PO (22:25)
[2018-04-10] MEDS ORDERED: LISI5 PO (11:32)
== END 2018-04-10 13:44 | disposition home or self-care (01) ==
LOC: ER 17:47 → MEDS 17:48 → ENPENDDIS 04-10 11:46 → MEDS 04-10 13:44
PROVIDERS: Emergency Medicine
DX: I95.9 Hypotension, unspecified (principal); I42.0 Dilated cardiomyopathy; I11.0 Hypertensive heart disease with heart failure; I50.22 Chronic systolic (congestive) heart failure; G47.30 Sleep apnea, unspecified; F32.9 Major depressive disorder, single episode, unspecified; F17.290 Nicotine dependence, other tobacco product, uncomplicated; Z79.899 Other long term (current) drug therapy
CPT/HCPCS: 36415; 71260; 80053; 83880; 84484; 85025; 93005; 93010; 96360; 99285-25; G0378; J7030; Q9967

== ENCOUNTER → 2018-05-25 | Outpatient (CLI) | payer MEDICARE, OTHER ==
[~2018-05-25] MED LIST changes: +LISI5 PO; +[UNRECOGNIZED DRUG - CODE] PO
== END | disposition home or self-care (01) ==
LOC: LAB SHORT 16:00 → LAB 16:00
DX: Z51.81 Encounter for therapeutic drug level monitoring (principal); M19.90 Unspecified osteoarthritis, unspecified site; M54.5 Low back pain; Z79.899 Other long term (current) drug therapy
CPT/HCPCS: G0480

== ENCOUNTER → 2018-06-21 | Outpatient (CLI) | payer MEDICARE, OTHER ==
[~2018-06-21] MED LIST changes: +LOPE2C PO; +Zantac150 MG PO
[2018-06-21 12:15] LABS: BASOPHILS ABSOLUTE AUTO 0.01 K/mm3 (0.00-0.23); BASOPHILS PERCENT AUTO 0 % (0-2); EOSINOPHILS PERCENT AUTO 0 % (0-6); Hematocrit 44.4 % (33.0-51.0); Hemoglobin 14.8 g/dL (11.5-16.0); IMMATURE GRAN ABSOLUTE AUTO 0.02 K/mm3 (0.00-0.10); IMMATURE GRAN PERCENT AUTO 1 % (0-1); LYMPHOCYTES ABSOLUTE AUTO 0.24 K/mm3 (0.84-5.20); LYMPHOCYTES PERCENT AUTO 7 % (21-46); MONOCYTES ABSOLUTE AUTO 0.35 K/mm3 (0.16-1.47); MONOCYTES PERCENT AUTO 10 % (4-13); Mean Corpuscular HGB 30.6 pg (26.0-34.0); Mean Corpuscular HGB Conc 33.3 g/dL (31.5-36.5); Mean Corpuscular Volume 92 fL (80-100); Mean Platelet Volume 11.4 fL (9.1-12.4); NEUTROPHILS ABSOLUTE AUTO 2.89 K/mm3 (1.96-9.15); NEUTROPHILS PERCENT AUTO 82 % (41-73); RDW Coefficient Variation 12.9 % (11.7-14.2); RDW Standard Deviation 43.2 fL (35.1-46.3); Red Blood Cell Count 4.83 M/mm3 (3.80-5.20); White Blood Cell Count 3.51 K/mm3 (4.00-11.30)
[2018-06-21 12:34] LABS: Alanine Aminotransfer (ALT/SGP 20 U/L (12-78); Albumin, Blood 3.3 g/dL (3.4-5.0); Albumin/Globulin Ratio 0.9 (0.8-1.8); Alk Phos 56 U/L (40-126); Anion Gap 10 mmol/L (6-16); Aspartate Aminotrans (AST/SGOT 28 U/L (12-37); Bilirubin, Total 0.3 mg/dL (0.1-1.0); Blood Urea Nitrogen 13 mg/dL (8-24); Bun/Creatinine Ratio 15.5 (12.0-20.0); CO2, Blood 28 mmol/L (21-32); Calcium, Blood 8.7 mg/dL (8.5-10.1); Chloride, Blood 99 mmol/L (98-108); Creatinine, Blood 0.84 mg/dL (0.40-1.00); Globulin, Blood 3.7 g/dL (2.2-4.0); Glomerular Filtration Rate >60 (60-); Glucose, Blood 106 mg/dL (70-99); Potassium, Blood 3.7 mmol/L (3.5-5.5); Sodium, Blood 137 mmol/L (136-145)
[2018-06-21 12:37] LABS: Troponin I <0.017 ng/mL (0.000-0.040)
== END | disposition home or self-care (01) ==
LOC: LAB EV 12:11 → LAB SHORT 12:11
PROVIDERS: Physician Assistant
DX: R07.9 Chest pain, unspecified (principal)
CPT/HCPCS: 80053; 83880; 84484; 85025

== ENCOUNTER 2018-06-23 17:47 | Emergency (ER) | payer MEDICARE, OTHER ==
[~2018-06-23] VITALS: Ht 170.2 cm; Wt 108.9 kg
[~2018-06-23 17:47] MED LIST changes: -LOPE2C PO; -Zantac150 MG PO
[2018-06-23 18:33] LABS: BASOPHILS ABSOLUTE AUTO 0.01 K/mm3 (0.00-0.23); BASOPHILS PERCENT AUTO 0 % (0-2); EOSINOPHILS ABSOLUTE AUTO 0.03 K/mm3 (0.00-0.68); EOSINOPHILS PERCENT AUTO 1 % (0-6); Hematocrit 48.4 % (33.0-51.0); Hemoglobin 15.7 g/dL (11.5-16.0); IMMATURE GRAN ABSOLUTE AUTO 0.01 K/mm3 (0.00-0.10); IMMATURE GRAN PERCENT AUTO 0 % (0-1); LYMPHOCYTES PERCENT AUTO 37 % (21-46); MONOCYTES ABSOLUTE AUTO 0.41 K/mm3 (0.16-1.47); MONOCYTES PERCENT AUTO 14 % (4-13); Mean Corpuscular HGB 29.7 pg (26.0-34.0); Mean Corpuscular HGB Conc 32.4 g/dL (31.5-36.5); Mean Corpuscular Volume 92 fL (80-100); NEUTROPHILS PERCENT AUTO 47 % (41-73); Platelet Count 109 K/mm3 (150-400); RDW Coefficient Variation 12.2 % (11.7-14.2); RDW Standard Deviation 41.5 fL (35.1-46.3); Red Blood Cell Count 5.28 M/mm3 (3.80-5.20); White Blood Cell Count 2.96 K/mm3 (4.00-11.30)
[2018-06-23 18:42] LABS: Influenza A Positive (NEGATIVE); Influenza B Negative (NEGATIVE)
[2018-06-23 18:52] LABS: Alanine Aminotransfer (ALT/SGP 44 U/L (12-78); Albumin, Blood 3.4 g/dL (3.4-5.0); Albumin/Globulin Ratio 0.9 (0.8-1.8); Alk Phos 58 U/L (50-136); Anion Gap 7 mmol/L (6-16); Aspartate Aminotrans (AST/SGOT 49 U/L (12-37); Bilirubin, Total 0.4 mg/dL (0.1-1.0); Blood Urea Nitrogen 17 mg/dL (8-24); Bun/Creatinine Ratio 23.7 (12.0-20.0); CO2, Blood 24 mmol/L (21-32); Chloride, Blood 107 mmol/L (98-108); Creatinine, Blood 0.72 mg/dL (0.40-1.00); Globulin, Blood 3.7 g/dL (2.2-4.0); Glomerular Filtration Rate >60 (60-); Glucose, Blood 90 mg/dL (70-99); Potassium, Blood 3.7 mmol/L (3.5-5.5); Sodium, Blood 138 mmol/L (136-145); Total Protein, Blood 7.1 g/dL (6.4-8.2)
[2018-06-23] MEDS ORDERED: Zantac150 MG PO (20:09)
[2018-06-23 20:30] LABS: Source, Urine Clean Catch
[2018-06-23 21:01] LABS: Blood, Urine 1+ (Neg); Glucose Qualitative, Urine Neg (Neg); Ketones, Urine 2+ (Neg); Leukocyte Esterase, Urine 1+ (Neg); Protein, Urine 2+ (Neg); Urobilinogen, Urine 1+ (Normal)
[2018-06-23 21:07] LABS: Nitrite, Urine Pos (Neg); pH, Urine 6.5 (5.0-8.0)
[2018-06-23 21:09] LABS: Appearance, Urine Hazy (Clear); Bilirubin, Urine 1+ (Neg); Color, Urine Amber (P-Yellow)
[2018-06-23 21:12] LABS: Amorphous Light (0-Heavy); Bacteria Mod /hpf; Mucus Mod (0-Heavy); Red Blood Cells, Urine Rare /hpf (0-2); Squamous Epithelial Cells Not Seen /hpf (Few)
[2018-06-23] MEDS ORDERED: LOPE2C PO (23:47)
== END 2018-06-24 00:50 | disposition home or self-care (01) ==
LOC: ER 17:47
PROVIDERS: Emergency Medicine; Physician Assistant
DX: J10.1 Influenza due to other identified influenza virus with other respiratory manifestations (principal); R19.7 Diarrhea, unspecified; D72.819 Decreased white blood cell count, unspecified; Z79.899 Other long term (current) drug therapy; Z79.891 Long term (current) use of opiate analgesic; I10 Essential (primary) hypertension; K21.9 Gastro-esophageal reflux disease without esophagitis
CPT/HCPCS: 36415; 80053; 81001; 85025; 87086; 87804; 96361; 96374; 99284-25; J2405; J7120

== ENCOUNTER → 2018-07-28 | Outpatient (CLI) | payer MEDICARE, OTHER ==
[~2018-07-28] MED LIST changes: +LOPE2C PO; +Zantac150 MG PO
[2018-07-28 18:46] LABS: Free Thyroxine 0.89 ng/dL (0.70-1.60)
[2018-07-28 19:16] LABS: Thyroid Stimulating Hormone 1.64 uIU/mL (0.360-4.800); Triiodothyronine, Free 2.73 pg/mL (2.18-3.98)
== END | disposition home or self-care (01) ==
LOC: LAB SHORT 15:33 → LAB 15:33
PROVIDERS: Internal Medicine Hematology & Oncology
DX: L40.50 Arthropathic psoriasis, unspecified (principal); K50.90 Crohn's disease, unspecified, without complications; R41.3 Other amnesia; R55 Syncope and collapse
CPT/HCPCS: 82550; 82607; 82746; 84439; 84443; 84481

== ENCOUNTER → 2018-09-01 | Outpatient (CLI) | payer MEDICARE, OTHER ==
[2018-09-01 16:59] LABS: BASOPHILS ABSOLUTE AUTO 0.04 K/mm3 (0.00-0.23); BASOPHILS PERCENT AUTO 1 % (0-2); EOSINOPHILS ABSOLUTE AUTO 0.16 K/mm3 (0.00-0.68); EOSINOPHILS PERCENT AUTO 2 % (0-6); IMMATURE GRAN ABSOLUTE AUTO 0.02 K/mm3 (0.00-0.10); IMMATURE GRAN PERCENT AUTO 0 % (0-1); LYMPHOCYTES ABSOLUTE AUTO 1.82 K/mm3 (0.84-5.20); LYMPHOCYTES PERCENT AUTO 27 % (21-46); MONOCYTES PERCENT AUTO 7 % (4-13); Mean Corpuscular HGB 30.2 pg (26.0-34.0); Mean Corpuscular HGB Conc 33.3 g/dL (31.5-36.5); Mean Corpuscular Volume 91 fL (80-100); Mean Platelet Volume 10.9 fL (9.1-12.4); NEUTROPHILS ABSOLUTE AUTO 4.34 K/mm3 (1.96-9.15); NEUTROPHILS PERCENT AUTO 63 % (41-73); Platelet Count 150 K/mm3 (150-400); RDW Standard Deviation 42.8 fL (35.1-46.3); Red Blood Cell Count 4.64 M/mm3 (3.80-5.20); White Blood Cell Count 6.88 K/mm3 (4.00-11.30)
[2018-09-01 17:16] LABS: Anion Gap 10 mmol/L (6-16); Blood Urea Nitrogen 21 mg/dL (8-24); CO2, Blood 28 mmol/L (21-32); Chloride, Blood 104 mmol/L (98-108); Glomerular Filtration Rate 56 (60-); Glucose, Blood 89 mg/dL (70-99); Sodium, Blood 142 mmol/L (136-145); Thyroid Stimulating Hormone 1.488 uIU/mL (0.360-4.800)
[2018-09-01 17:20] LABS: Troponin I <0.017 ng/mL (0.000-0.040)
== END | disposition home or self-care (01) ==
LOC: LAB EV 16:50 → LAB SHORT 16:50
PROVIDERS: Physician Assistant Surgical
DX: R06.02 Shortness of breath (principal); R07.9 Chest pain, unspecified; R53.83 Other fatigue; R20.2 Paresthesia of skin
CPT/HCPCS: 80048; 82607; 83880; 84443; 84484; 85025

== ENCOUNTER 2018-11-09 20:54 | Emergency (ER) | payer MEDICARE, OTHER ==
[~2018-11-09] VITALS: Ht 170.2 cm; Wt 108.9 kg
[2018-11-09 21:44] LABS: BASOPHILS ABSOLUTE AUTO 0.05 K/mm3 (0.00-0.23); BASOPHILS PERCENT AUTO 1 % (0-2); EOSINOPHILS ABSOLUTE AUTO 0.28 K/mm3 (0.00-0.68); EOSINOPHILS PERCENT AUTO 3 % (0-6); Hematocrit 43.9 % (33.0-51.0); Hemoglobin 13.8 g/dL (11.5-16.0); IMMATURE GRAN ABSOLUTE AUTO 0.02 K/mm3 (0.00-0.10); IMMATURE GRAN PERCENT AUTO 0 % (0-1); LYMPHOCYTES ABSOLUTE AUTO 1.98 K/mm3 (0.84-5.20); LYMPHOCYTES PERCENT AUTO 23 % (21-46); MONOCYTES ABSOLUTE AUTO 0.58 K/mm3 (0.16-1.47); MONOCYTES PERCENT AUTO 7 % (4-13); Mean Corpuscular HGB 30.6 pg (26.0-34.0); Mean Corpuscular HGB Conc 31.4 g/dL (31.5-36.5); Mean Corpuscular Volume 97 fL (80-100); Mean Platelet Volume 10.3 fL (9.1-12.4); NEUTROPHILS ABSOLUTE AUTO 5.56 K/mm3 (1.96-9.15); NEUTROPHILS PERCENT AUTO 66 % (41-73); Platelet Count 173 K/mm3 (150-400); RDW Coefficient Variation 12.8 % (11.7-14.2); Red Blood Cell Count 4.51 M/mm3 (3.80-5.20); White Blood Cell Count 8.47 K/mm3 (4.00-11.30)
[2018-11-09] MEDS ORDERED: CYAN1000I IM (21:56)
[2018-11-09 22:06] LABS: Alanine Aminotransfer (ALT/SGP 22 U/L (12-78); Albumin, Blood 3.4 g/dL (3.4-5.0); Albumin/Globulin Ratio 0.9 (0.8-1.8); Alk Phos 54 U/L (50-136); Anion Gap 5 mmol/L (6-16); Aspartate Aminotrans (AST/SGOT 19 U/L (12-37); Bilirubin, Total 0.2 mg/dL (0.1-1.0); Blood Urea Nitrogen 16 mg/dL (8-24); Bun/Creatinine Ratio 18.1 (12.0-20.0); CO2, Blood 27 mmol/L (21-32); Calcium, Blood 8.4 mg/dL (8.5-10.1); Chloride, Blood 113 mmol/L (98-108); Creatinine, Blood 0.88 mg/dL (0.40-1.00); Globulin, Blood 3.6 g/dL (2.2-4.0); Glomerular Filtration Rate >60 (60-); Glucose, Blood 82 mg/dL (70-99); Sodium, Blood 145 mmol/L (136-145)
[2018-11-10] MEDS ORDERED: CEFP200 PO (01:11)
[2018-11-10] MEDS ORDERED: Flagyl500 MG PO (01:11)
== END 2018-11-10 02:08 | disposition home or self-care (01) ==
LOC: ER 20:54
PROVIDERS: Physician Assistant
DX: K52.9 Noninfective gastroenteritis and colitis, unspecified (principal); Z79.899 Other long term (current) drug therapy; Z79.891 Long term (current) use of opiate analgesic; I11.0 Hypertensive heart disease with heart failure; I50.9 Heart failure, unspecified; K21.9 Gastro-esophageal reflux disease without esophagitis; F17.200 Nicotine dependence, unspecified, uncomplicated
CPT/HCPCS: 36415; 74177; 80053; 85025; 86850; 86900; 86901; 93005; 93010; 96374-59; 99284-25; A9270-GY; J2270; Q9967

== ENCOUNTER → 2019-02-21 | Outpatient (CLI) | payer MEDICARE, OTHER ==
[~2019-02-21] MED LIST changes: +CEFP200 PO; +CYAN1000I IM; +Flagyl500 MG PO
[2019-02-23 15:07] LABS: HPV 16 Negative (Negative); HPV 18 Negative (Negative); HPV OTHER HR TYPES Positive (Negative)
== END | disposition home or self-care (01) ==
LOC: LAB SHORT 15:15 → LAB SRC 15:15
PROVIDERS: Nurse Practitioner Family
DX: Z12.4 Encounter for screening for malignant neoplasm of cervix (principal)
CPT/HCPCS: 87624; 87625; G0123

== ENCOUNTER → 2019-03-03 | Outpatient (CLI) | payer MEDICARE, OTHER ==
[~2019-03-03] MED LIST changes: +Bentyl20 MG PO; +CEFD300 PO; -Cymbalta20 MG PO; +DULO60 PO; -LISI5 PO; +METOPROLOL SUCC25 MG PO; +PREG75 PO; -TRAZ100 PO; +TRAZ150T57 PO
[2019-03-03 11:42] LABS: Anion Gap 12 mmol/L (6-16); CO2, Blood 25 mmol/L (21-32); Chloride, Blood 107 mmol/L (98-108); Potassium, Blood 4.2 mmol/L (3.5-5.5); Sodium, Blood 144 mmol/L (136-145)
[2019-03-03 11:43] LABS: Alanine Aminotransfer (ALT/SGP 39 U/L (12-78); Albumin, Blood 3.4 g/dL (3.4-5.0); Albumin/Globulin Ratio 1.1 (0.8-1.8); Alk Phos 58 U/L (40-126); Aspartate Aminotrans (AST/SGOT 36 U/L (12-37); Bilirubin, Total 0.3 mg/dL (0.1-1.0); Blood Urea Nitrogen 12 mg/dL (8-24); Bun/Creatinine Ratio 17.6 (12.0-20.0); Calcium, Blood 8.8 mg/dL (8.5-10.1); Creatinine, Blood 0.68 mg/dL (0.40-1.00); Globulin, Blood 3.1 g/dL (2.2-4.0); Glomerular Filtration Rate >60 (60-); Glucose, Blood 83 mg/dL (70-99); Total Protein, Blood 6.5 g/dL (6.4-8.2)
[2019-03-03 11:44] LABS: CPK Creatine Kinase 86 U/L (26-192); Troponin I <0.017 ng/mL (0.000-0.040)
[2019-03-03 11:45] LABS: Hematocrit 40.9 % (33.0-51.0); Hemoglobin 13.6 g/dL (11.5-16.0); Mean Corpuscular Volume 92 fL (80-100); Red Blood Cell Count 4.43 M/mm3 (3.80-5.20); White Blood Cell Count 3.83 K/mm3 (4.00-11.30)
[2019-03-03 11:46] LABS: LYMPHOCYTES PERCENT AUTO 15 % (21-46); MONOCYTES PERCENT AUTO 12 % (4-13); Mean Corpuscular HGB 30.7 pg (26.0-34.0); Mean Corpuscular HGB Conc 33.3 g/dL (31.5-36.5); Mean Platelet Volume 11.2 fL (9.1-12.4); NEUTROPHILS PERCENT AUTO 69 % (41-73); Platelet Count 138 K/mm3 (150-400); RDW Coefficient Variation 12.9 % (11.7-14.2); RDW Standard Deviation 43.8 fL (35.1-46.3)
[2019-03-03 11:47] LABS: BASOPHILS ABSOLUTE AUTO 0.02 K/mm3 (0.00-0.23); BASOPHILS PERCENT AUTO 1 % (0-2); EOSINOPHILS ABSOLUTE AUTO 0.08 K/mm3 (0.00-0.68); EOSINOPHILS PERCENT AUTO 2 % (0-6); IMMATURE GRAN ABSOLUTE AUTO 0.04 K/mm3 (0.00-0.10); IMMATURE GRAN PERCENT AUTO 1 % (0-1); LYMPHOCYTES ABSOLUTE AUTO 0.58 K/mm3 (0.84-5.20); MONOCYTES ABSOLUTE AUTO 0.46 K/mm3 (0.16-1.47); NEUTROPHILS ABSOLUTE AUTO 2.65 K/mm3 (1.96-9.15)
== END | disposition home or self-care (01) ==
LOC: LAB SHORT 11:12 → LAB EV 11:12
PROVIDERS: General Practice
DX: R07.9 Chest pain, unspecified (principal)
CPT/HCPCS: 80053; 82550; 83880; 84484; 85025

== ENCOUNTER → 2019-03-04 | Outpatient (CLI) | payer MEDICARE, OTHER ==
[2019-03-04 13:20] LABS: BASOPHILS ABSOLUTE AUTO 0.02 K/mm3 (0.00-0.23); BASOPHILS PERCENT AUTO 0 % (0-2); EOSINOPHILS ABSOLUTE AUTO 0.02 K/mm3 (0.00-0.68); EOSINOPHILS PERCENT AUTO 0 % (0-6); Hematocrit 42.9 % (33.0-51.0); Hemoglobin 14.1 g/dL (11.5-16.0); IMMATURE GRAN ABSOLUTE AUTO 0.03 K/mm3 (0.00-0.10); IMMATURE GRAN PERCENT AUTO 1 % (0-1); LYMPHOCYTES PERCENT AUTO 24 % (21-46); MONOCYTES ABSOLUTE AUTO 0.48 K/mm3 (0.16-1.47); MONOCYTES PERCENT AUTO 10 % (4-13); Mean Corpuscular HGB 30.6 pg (26.0-34.0); Mean Corpuscular HGB Conc 32.9 g/dL (31.5-36.5); Mean Corpuscular Volume 93 fL (80-100); Mean Platelet Volume 10.7 fL (9.1-12.4); NEUTROPHILS ABSOLUTE AUTO 3.26 K/mm3 (1.96-9.15); NEUTROPHILS PERCENT AUTO 65 % (41-73); Platelet Count 150 K/mm3 (150-400); RDW Coefficient Variation 13.2 % (11.7-14.2); RDW Standard Deviation 44.7 fL (35.1-46.3); Red Blood Cell Count 4.61 M/mm3 (3.80-5.20); White Blood Cell Count 5.01 K/mm3 (4.00-11.30)
[2019-03-04 13:23] LABS: Anion Gap 11 mmol/L (6-16); Blood Urea Nitrogen 11 mg/dL (8-24); CO2, Blood 25 mmol/L (21-32); Calcium, Blood 9.1 mg/dL (8.5-10.1); Chloride, Blood 107 mmol/L (98-108); Creatinine, Blood 0.92 mg/dL (0.40-1.00); Glomerular Filtration Rate >60 (60-); Glucose, Blood 85 mg/dL (70-99); Potassium, Blood 3.7 mmol/L (3.5-5.5); Sodium, Blood 143 mmol/L (136-145)
== END | disposition home or self-care (01) ==
LOC: LAB SHORT 13:05 → LAB EV 13:05
PROVIDERS: General Practice
DX: I50.9 Heart failure, unspecified (principal)
CPT/HCPCS: 80048; 83880; 85025

== ENCOUNTER 2019-03-05 13:47 | Inpatient (IN) | payer MEDICARE, OTHER ==
[~2019-03-05] VITALS: Ht 167.6 cm; Wt 115.0 kg
[~2019-03-05 13:47] MED LIST changes: -Bentyl20 MG PO; -CEFD300 PO; -METOPROLOL SUCC25 MG PO; -MIDO5 PO; -PREG75 PO
[2019-03-05 14:32] LABS: BASOPHILS ABSOLUTE AUTO 0.03 K/mm3 (0.00-0.23); BASOPHILS PERCENT AUTO 1 % (0-2); EOSINOPHILS ABSOLUTE AUTO 0.03 K/mm3 (0.00-0.68); EOSINOPHILS PERCENT AUTO 1 % (0-6); Hematocrit 44.5 % (33.0-51.0); Hemoglobin 14.4 g/dL (11.5-16.0); IMMATURE GRAN ABSOLUTE AUTO 0.03 K/mm3 (0.00-0.10); IMMATURE GRAN PERCENT AUTO 1 % (0-1); LYMPHOCYTES ABSOLUTE AUTO 0.77 K/mm3 (0.84-5.20); LYMPHOCYTES PERCENT AUTO 31 % (21-46); MONOCYTES ABSOLUTE AUTO 0.24 K/mm3 (0.16-1.47); MONOCYTES PERCENT AUTO 10 % (4-13); Mean Corpuscular HGB 30.4 pg (26.0-34.0); Mean Corpuscular HGB Conc 32.4 g/dL (31.5-36.5); Mean Corpuscular Volume 94 fL (80-100); NEUTROPHILS ABSOLUTE AUTO 1.39 K/mm3 (1.96-9.15); NEUTROPHILS PERCENT AUTO 56 % (41-73); RDW Coefficient Variation 12.9 % (11.7-14.2); RDW Standard Deviation 44.9 fL (35.1-46.3); Red Blood Cell Count 4.74 M/mm3 (3.80-5.20); White Blood Cell Count 2.49 K/mm3 (4.00-11.30)
[2019-03-05 14:47] LABS: Mean Platelet Volume 11.2 fL (9.1-12.4); Platelet Count 100 K/mm3 (150-400)
[2019-03-05 14:52] LABS: Alanine Aminotransfer (ALT/SGP 38 U/L (12-78); Albumin, Blood 3.2 g/dL (3.4-5.0); Alk Phos 55 U/L (50-136); Anion Gap 7 mmol/L (6-16); Aspartate Aminotrans (AST/SGOT 28 U/L (12-37); Bilirubin, Total 0.3 mg/dL (0.1-1.0); Blood Urea Nitrogen 13 mg/dL (8-24); Bun/Creatinine Ratio 14.1 (12.0-20.0); CO2, Blood 25 mmol/L (21-32); Calcium, Blood 8.5 mg/dL (8.5-10.1); Chloride, Blood 107 mmol/L (98-108); Creatinine, Blood 0.92 mg/dL (0.40-1.00); Globulin, Blood 3.1 g/dL (2.2-4.0); Glomerular Filtration Rate >60 (60-); Glucose, Blood 81 mg/dL (70-99); Sodium, Blood 139 mmol/L (136-145); Total Protein, Blood 6.3 g/dL (6.4-8.2); Troponin I <0.015 ng/mL (0.000-0.040)
[2019-03-05 17:14] LABS: Source, Urine Voided
[2019-03-05 17:19] LABS: Bilirubin, Urine Neg (Neg); Blood, Urine Neg (Neg); Glucose Qualitative, Urine Neg (Neg); Ketones, Urine Neg (Neg); Leukocyte Esterase, Urine Neg (Neg); Nitrite, Urine Neg (Neg); Protein, Urine Neg (Neg); Specific Gravity, Urine 1.015 (1.003-1.022); Urobilinogen, Urine NORM (Normal)
[2019-03-05 17:36] LABS: Appearance, Urine Clear (Clear); Color, Urine Yellow (P-Yellow)
[2019-03-05] MEDS ORDERED: Prednisone10 MG PO (18:35)
[2019-03-05] MEDS ORDERED: Zantac150 MG PO (18:38)
[2019-03-05] MEDS ORDERED: LOPE2C PO (18:39)
[2019-03-05] MEDS ORDERED: PREG75 PO (18:39)
[2019-03-05] MEDS ORDERED: Bentyl20 MG PO (18:40)
[2019-03-05] MEDS ORDERED: METOPROLOL SUCC25 MG PO (18:43)
[2019-03-05 18:46] LABS: Influenza A Negative (NEGATIVE); Influenza B Negative (NEGATIVE)
[2019-03-05] MEDS ORDERED: MIDO5 PO (20:00)
[2019-03-05] MEDS ORDERED: TORSE20 PO (20:00)
[2019-03-06 00:11] LABS: Adenovirus Not Detected (NOT DETECT); Coronavirus 229E Not Detected (NOT DETECT); Coronavirus HKU1 Not Detected (NOT DETECT); Coronavirus NL63 Not Detected (NOT DETECT); Coronavirus OC43 Not Detected (NOT DETECT); Human Metapneumovirus Not Detected (NOT DETECT); Human Rhinovirus/Enterovirus Not Detected (NOT DETECT); Influenza A Not Detected (NOT DETECT); Influenza A/H1 Not Detected (NOT DETECT)
[2019-03-06 00:12] LABS: Bordetella pertussis Not Detected (NOT DETECT); Chlamydophila pneumoniae Not Detected (NOT DETECT); Influenza A/2009-H1 Not Detected (NOT DETECT); Influenza A/H3 Not Detected (NOT DETECT); Influenza B Not Detected (NOT DETECT); Mycoplasma pneumoniae Not Detected (NOT DETECT); Parainfluenza Virus 1 Detected (NOT DETECT); Parainfluenza Virus 2 Not Detected (NOT DETECT); Parainfluenza Virus 3 Not Detected (NOT DETECT); Parainfluenza Virus 4 Not Detected (NOT DETECT); Respiratory Syncytial Virus Not Detected (NOT DETECT)
--- NOTE | 2019-03-06 03:41 | NUR ---
PT REFUSED TO HAVE TEDS ON. STATES IT HURTS.
[2019-03-06 04:43] LABS: Hematocrit 42.4 % (33.0-51.0); Hemoglobin 13.8 g/dL (11.5-16.0); Mean Corpuscular HGB 30.8 pg (26.0-34.0); Mean Corpuscular HGB Conc 32.5 g/dL (31.5-36.5); Mean Corpuscular Volume 95 fL (80-100); Mean Platelet Volume 11.4 fL (9.1-12.4); Platelet Count 80 K/mm3 (150-400); RDW Coefficient Variation 12.9 % (11.7-14.2); RDW Standard Deviation 45.2 fL (35.1-46.3); Red Blood Cell Count 4.48 M/mm3 (3.80-5.20)
[2019-03-06 04:48] LABS: BASOPHILS PERCENT AUTO 0 % (0-2); EOSINOPHILS PERCENT AUTO 0 % (0-6); IMMATURE GRAN ABSOLUTE AUTO 0.02 K/mm3 (0.00-0.10); IMMATURE GRAN PERCENT AUTO 2 % (0-1); LYMPHOCYTES ABSOLUTE AUTO 0.42 K/mm3 (0.84-5.20); LYMPHOCYTES PERCENT AUTO 44 % (21-46); MONOCYTES ABSOLUTE AUTO 0.08 K/mm3 (0.16-1.47); MONOCYTES PERCENT AUTO 8 % (4-13); NEUTROPHILS ABSOLUTE AUTO 0.43 K/mm3 (1.96-9.15); NEUTROPHILS PERCENT AUTO 45 % (41-73)
[2019-03-06 05:04] LABS: White Blood Cell Count 0.95 K/mm3 (4.00-11.30)
[2019-03-06 05:15] LABS: Anion Gap 6 mmol/L (6-16); Blood Urea Nitrogen 17 mg/dL (8-24); Bun/Creatinine Ratio 19.1 (12.0-20.0); CO2, Blood 24 mmol/L (21-32); Calcium, Blood 8.5 mg/dL (8.5-10.1); Chloride, Blood 112 mmol/L (98-108); Creatinine, Blood 0.89 mg/dL (0.40-1.00); Glomerular Filtration Rate >60 (60-); Glucose, Blood 119 mg/dL (70-99); Potassium, Blood 4.4 mmol/L (3.5-5.5); Sodium, Blood 142 mmol/L (136-145)
--- NOTE | 2019-03-06 06:15 | NUR ---
ANIMAL GROOMER SUMMARY PT A/O X4. PT APPEARED TO SLEEP WELL THROUGHOUT THE NIGHT. HOWEVER, WHEN ASKED ABOUT HOW SHE SLEPT, SHE STATED THAT HER COUGH HAS KEPT HER UP ALL NIGHT. TESSALON PEARLS DID NOT HELP WITH COUGH. WILL NOTIFY AM NURSE ABOUT THIS. PT AFEBRILE THIS SHIFT. PT FOUND TO HAVE A CRITICAL LAB VALUE WBC OF 0.95. NOTIFIED. CONSULT FOR DR EMIR COLON. PT NOW ON NEUTROPENIC PRECAUTIONS.
[2019-03-06 14:52] LABS: Campylobacter Sp Not Detected (NOT DETECT); Cryptosporidium Not Detected (NOT DETECT); Cyclospora Cayetanensis Not Detected (NOT DETECT); E. Coli O157 Not Detected (NOT DETECT); Entamoeba Histolytica Not Detected (NOT DETECT); Enteroaggregative E. coli-EAEC Not Detected (NOT DETECT); Enteropathogenic E. coli-EPEC Not Detected (NOT DETECT); Enterotoxigenic E. coli-ETEC Not Detected (NOT DETECT); Giardia Lamblia Not Detected (NOT DETECT); Plesiomonas Shigelloides Not Detected (NOT DETECT); Salmonella Sp Not Detected (NOT DETECT); Shiga Toxin-prod E. coli-STEC Not Detected (NOT DETECT); Shigella/Enteroin E. coli-EIEC Not Detected (NOT DETECT); Vibrio Cholerae Not Detected (NOT DETECT); Vibrio Sp Not Detected (NOT DETECT); Yersinia Enterocolitica Not Detected (NOT DETECT)
[2019-03-06 14:53] LABS: Adenovirus F 40/41 Not Detected (NOT DETECT); Astrovirus Not Detected (NOT DETECT); Norovirus GI/GII Not Detected (NOT DETECT); Rotavirus A Not Detected (NOT DETECT); Sapovirus Not Detected (NOT DETECT)
[2019-03-06] MEDS ORDERED: CEFD300 PO (15:45)
--- NOTE | 2019-03-06 16:10 | NUR ---
Initial Visit: Patient seen for symptom managment and education. She has a history of cardiomyopathy with fibrillation arrest in 2018, hypertension, sleep apnea. Patient is alert, oriented. She appears slightly anxious, but denies. She is painful from the marrow biopsy. It was extremely painful and the site is now very sore. She reports that she is very confused with what is going on with her, what testing she is undergoing. Reviewed purpose for marrow biopsy. She does have some questions that are more appropriate for a doctor to answer. Instructed her to write her questions down, as she thinks of them, for her to review with the hospitalist tomorrow. She verbalizes understanding. Instructed on low white blood cells; good handwashing hygine and mask wearing for visitors to reduce risk for infection. Pt's family arrives for a visit. Pt is requesting pain medication when nurse is able to bring some. Updated Libia of pt's needs for medication.
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
[2019-03-06 18:12] LABS: Performing Lab SYMBIODX
--- NOTE | 2019-03-06 18:13 | NUR ---
ALERT. ORIENTED. UNLABORED RESPIRATIONS.COUGH HAS DECREASED IMMENSELY SINCE A.M. BIOPSY SITE IS TOLERABLE. IV'S X 2 PATENT.AWARE MAY TAKE FEW DAYS FOR RESULTS FROM BIOPSY. STEADY GAIT IN ROOM. COOPERATIVE. PLEASANT. ABLE TO MAKE NEEDS KNOWN. TM
[2019-03-07 05:12] LABS: BASOPHILS PERCENT AUTO 0 % (0-2); EOSINOPHILS PERCENT AUTO 0 % (0-6); Hematocrit 41.7 % (33.0-51.0); Hemoglobin 13.5 g/dL (11.5-16.0); IMMATURE GRAN ABSOLUTE AUTO 0.02 K/mm3 (0.00-0.10); IMMATURE GRAN PERCENT AUTO 1 % (0-1); LYMPHOCYTES ABSOLUTE AUTO 0.58 K/mm3 (0.84-5.20); LYMPHOCYTES PERCENT AUTO 32 % (21-46); MONOCYTES ABSOLUTE AUTO 0.11 K/mm3 (0.16-1.47); MONOCYTES PERCENT AUTO 6 % (4-13); Mean Corpuscular HGB 30.5 pg (26.0-34.0); Mean Corpuscular HGB Conc 32.4 g/dL (31.5-36.5); Mean Corpuscular Volume 94 fL (80-100); NEUTROPHILS ABSOLUTE AUTO 1.09 K/mm3 (1.96-9.15); NEUTROPHILS PERCENT AUTO 61 % (41-73); RDW Standard Deviation 45.1 fL (35.1-46.3); Red Blood Cell Count 4.43 M/mm3 (3.80-5.20)
[2019-03-07 05:29] LABS: Anion Gap 4 mmol/L (6-16); Blood Urea Nitrogen 21 mg/dL (8-24); Bun/Creatinine Ratio 21.3 (12.0-20.0); CO2, Blood 27 mmol/L (21-32); Calcium, Blood 8.7 mg/dL (8.5-10.1); Chloride, Blood 109 mmol/L (98-108); Creatinine, Blood 0.99 mg/dL (0.40-1.00); Glomerular Filtration Rate >60 (60-); Glucose, Blood 119 mg/dL (70-99); Potassium, Blood 4.4 mmol/L (3.5-5.5); Sodium, Blood 140 mmol/L (136-145)
[2019-03-07 05:34] LABS: Platelet Count 65 K/mm3 (150-400)
--- NOTE | 2019-03-07 05:46 | NUR ---
SOFTWARE APPLICATIONS DESIGNER SUMMARY PT A/O X4. PT STATES PAIN HAS BEEN "TOLERABLE THIS SHIFT". PAIN MEDS WERE NOT NEEDED THIS SHIFT. PT'S COUGH IMPROVING, LESS CROUPY AND BARKY. PT'S COUGH HAS BEEN NON PRODUCTIVE, THEREFORE NO SPUTUM CULTURES WERE COLLECTED. VSS, AFEBRILE. SLEPT OKAY DURING THE NIGHT WITH MINIAL INTURRPTIONS FROM STAFF. WILL CONTINUE TO MONITOR.
--- NOTE | 2019-03-07 09:05 | NUR ---
PT PLEASANT COOP A/O. STATES SOME PAIN IN BACK 10/02, LIKE T OGET DOWN TO BEST O F4/10. STATES NORMALLY TAKES NORCO PRN. MED PER EMAR. H/R REG, NO MURMER NOTED. NO TELE. PACEDR DEFIB IN LUCW. LUNGS COARSE, EXP WHEEZE T/O. ON R/A, RESP EASY, UNLABORED. BT X4 LAST BM TODAY. ADMITS TO IBS AND LOOSE STOOL NORMAL. VOIDS INCONT OF URINE. IN ATTENDS. RT HIP, HAS SAMMY , CDI. BED IN LOW POSITION, CALL LITE IN REACH, CALLS APPROP
--- NOTE | 2019-03-07 12:11 | NUR ---
Spiritual Care routine note: Lengthy conversation with Awilda this morning. She admits she is very worried about possible cancer dx. She tells me she is determined to do whatever is possible to fight if dx is cancer. She told me about her life--her stuggles and heartbreaks. She was often tearful, but appeared to appreciate being heard and affirmed. She is clearly the matriarch of her family and holds concerns for her family if she becomes very ill and/or dies. According to Awilda, her , Ed, is having a very difficult time with her illness. She asked that when dx comes, that I am available to speak with Ed. I provided theraputic listening and tariff counsel to good effect. We have an easy rapport and Awilda seems comfortable sharing her fears/concerns with me. She expects dx today or tomorrow. I will remain available.
--- NOTE | 2019-03-07 15:13 | NUR ---
1330 CHECK B/P PRIOR TO MIDODRINE. IS 88/69. P 82 MIDODRINE ADMIN. PT STATES OTHER THAN SOME WEAKNESS, IS FINE. 1530 RECHECK B/P AFTER MODODRINE, IS 129/68 P 69 PT STATES FEELING BETTER. CONTINUE TO MONITOR
--- NOTE | 2019-03-07 18:25 | NUR ---
PT PLEASANT TODAY. PAIN MANAGED WITH AVAIL MEDS. ONLY TOOK MIDODRINE ONCE THIS SHIFT. IN TO VISIT TODAY. CANCER DR GUEVARA IN TO SEE TODAY. STATES WILL ADVISE WHEN RESULTS IN FOR PT. NO OTHER CONCERNS AT THIS TIME. BED IN LOW POSITION, CALL LITE IN REACH, CALLS APPROP
[2019-03-08 04:56] LABS: BASOPHILS PERCENT AUTO 0 % (0-2); EOSINOPHILS PERCENT AUTO 0 % (0-6); Hematocrit 45.3 % (33.0-51.0); Hemoglobin 14.5 g/dL (11.5-16.0); IMMATURE GRAN ABSOLUTE AUTO 0.02 K/mm3 (0.00-0.10); IMMATURE GRAN PERCENT AUTO 1 % (0-1); LYMPHOCYTES ABSOLUTE AUTO 0.86 K/mm3 (0.84-5.20); LYMPHOCYTES PERCENT AUTO 27 % (21-46); MONOCYTES ABSOLUTE AUTO 0.14 K/mm3 (0.16-1.47); MONOCYTES PERCENT AUTO 4 % (4-13); Mean Corpuscular HGB 30.1 pg (26.0-34.0); Mean Corpuscular Volume 94 fL (80-100); NEUTROPHILS ABSOLUTE AUTO 2.21 K/mm3 (1.96-9.15); NEUTROPHILS PERCENT AUTO 69 % (41-73); RDW Coefficient Variation 12.9 % (11.7-14.2); Red Blood Cell Count 4.81 M/mm3 (3.80-5.20); White Blood Cell Count 3.23 K/mm3 (4.00-11.30)
[2019-03-08 05:00] LABS: Mean Platelet Volume 11.7 fL (9.1-12.4); Platelet Count 75 K/mm3 (150-400)
--- NOTE | 2019-03-08 06:19 | NUR ---
SHIFT SUMMARY NO ACUTE EVENTS OVERNIGHT. PATIENT SLEPT THROUGH SHIFT WITH NO COMPLAINTS OF PAIN. UP TO BSC. AAOX4. DRESSING ON RIGHT HIP C/D/I/ NEUTROPENIC PRECAUTIONS. WILL CONTINUE TO MONITOR.
[2019-03-08] MEDS ORDERED: Prednisone10 MG PO (11:07)
[2019-03-08] MEDS ORDERED: GUAI600T33 PO (11:08)
[2019-03-08] MEDS ORDERED: FLUTICASONE-SA1 EAC2 INH (11:08)
--- NOTE | 2019-03-08 11:54 | NUR ---
PT HAS DC ORDERS TO HOME. FOLLOW UP APPTS WERE SCHEDULED ORDERED AND REVIEWED WITH PT. ALL RX WERE FAXED TO [facility] IN [place] PER PT REQUEST. ALL MED ORDERS WERE REVIEWED WITH PT WHO VERBALIZED AN UNDERSTANNDING. BOTH IV'S WERE REMOVED WITH NO ISSUE. ALL PERSONAL BELONGINGS SENT WITH PT. PT WILL TRANSPORT HER HOME.
[2019-03-14 09:56] LABS: Test Name BM WITH FLOW
== END 2019-03-08 12:25 | disposition home or self-care (01) | DRG 153 ==
LOC: ER 13:47 → MEDS 18:29 → ENPENDDIS 03-08 10:15 → MEDS 03-08 12:25
PROVIDERS: Emergency Medicine; Internal Medicine Hematology & Oncology; Physician Assistant; ADMIT Hospitalist
PROC: 07DR3ZX Extraction of Iliac Bone Marrow, Percutaneous Approach, Diagnostic (ICD-10-PCS; principal; 2019-03-06)
DX: J06.9 Acute upper respiratory infection, unspecified (principal); I42.0 Dilated cardiomyopathy; R65.10 Systemic inflammatory response syndrome (SIRS) of non-infectious origin without acute organ dysfunction; Z95.810 Presence of automatic (implantable) cardiac defibrillator; G47.30 Sleep apnea, unspecified; F17.290 Nicotine dependence, other tobacco product, uncomplicated; K58.0 Irritable bowel syndrome with diarrhea; D70.9 Neutropenia, unspecified; D69.6 Thrombocytopenia, unspecified; B97.89 Other viral agents as the cause of diseases classified elsewhere
CPT/HCPCS: 0097U; 0099U; 36415; 71046; 74177; 80048; 80053; 81003; 81342; 82550; 83605; 83880; 84145; 84484; 85025; 85097; 87040; 87804; 88184; 88185; 88271; 88275; 88305; 88311; 88313; 88360; 93005; 93010; 94640; 94760; 96365; 96366; 96375; 99285-25; A9270-GY; J0696; J1650; J1956; J2920; J2930; J3480; J7050; Q9967

== ENCOUNTER 2019-07-06 13:13 | Day surgery (SDC) | payer MEDICARE, OTHER ==
[~2019-07-06 13:13] MED LIST changes: +Bentyl20 MG PO; +CEFD300 PO; +FLUTICASONE-SA1 EAC2 INH; +GUAI600T33 PO; +METOPROLOL SUCC25 MG PO; +MIDO5 PO; +PREG75 PO
== END 2019-07-06 23:10 | disposition home or self-care (01) ==
LOC: RAD 13:13
DX: M17.11 Unilateral primary osteoarthritis, right knee (principal); M23.306 Other meniscus derangements, unspecified meniscus, right knee; M23.91 Unspecified internal derangement of right knee
CPT/HCPCS: 20610; 73701; 77002; Q9967

== ENCOUNTER 2019-11-19 13:21 | Emergency (ER) | payer MEDICARE, OTHER ==
[~2019-11-19] VITALS: Ht 170.2 cm; Wt 113.8 kg
[2019-11-19 14:11] LABS: BASOPHILS ABSOLUTE AUTO 0.05 K/mm3 (0.00-0.23); BASOPHILS PERCENT AUTO 1 % (0-2); EOSINOPHILS ABSOLUTE AUTO 0.27 K/mm3 (0.00-0.68); EOSINOPHILS PERCENT AUTO 3 % (0-6); Hematocrit 44.3 % (33.0-51.0); Hemoglobin 14.3 g/dL (11.5-16.0); IMMATURE GRAN ABSOLUTE AUTO 0.03 K/mm3 (0.00-0.10); IMMATURE GRAN PERCENT AUTO 0 % (0-1); LYMPHOCYTES ABSOLUTE AUTO 2.53 K/mm3 (0.84-5.20); LYMPHOCYTES PERCENT AUTO 27 % (21-46); MONOCYTES ABSOLUTE AUTO 0.73 K/mm3 (0.16-1.47); MONOCYTES PERCENT AUTO 8 % (4-13); Mean Corpuscular HGB 30.1 pg (26.0-34.0); Mean Corpuscular HGB Conc 32.3 g/dL (31.5-36.5); Mean Corpuscular Volume 93 fL (80-100); NEUTROPHILS ABSOLUTE AUTO 5.74 K/mm3 (1.96-9.15); NEUTROPHILS PERCENT AUTO 61 % (41-73); RDW Coefficient Variation 12.8 % (11.7-14.2); Red Blood Cell Count 4.75 M/mm3 (3.80-5.20); White Blood Cell Count 9.35 K/mm3 (4.00-11.30)
[2019-11-19 14:39] LABS: Alanine Aminotransfer (ALT/SGP 29 U/L (12-78); Albumin, Blood 3.4 g/dL (3.4-5.0); Albumin/Globulin Ratio 0.9 (0.8-1.8); Alk Phos 57 U/L (50-136); Anion Gap 8 mmol/L (6-16); Aspartate Aminotrans (AST/SGOT 23 U/L (12-37); Bilirubin, Total 0.3 mg/dL (0.1-1.0); Blood Urea Nitrogen 26 mg/dL (8-24); Bun/Creatinine Ratio 29.2 (12.0-20.0); CO2, Blood 25 mmol/L (21-32); Calcium, Blood 8.8 mg/dL (8.5-10.1); Chloride, Blood 107 mmol/L (98-108); Creatinine, Blood 0.89 mg/dL (0.40-1.00); Globulin, Blood 3.6 g/dL (2.2-4.0); Glomerular Filtration Rate >60 (60-); Glucose, Blood 86 mg/dL (70-99); Potassium, Blood 3.9 mmol/L (3.5-5.5); Sodium, Blood 140 mmol/L (136-145); Troponin I <0.015 ng/mL (0.000-0.040)
== END 2019-11-19 17:27 | disposition home or self-care (01) ==
LOC: ER 13:21
PROVIDERS: Physician Assistant
DX: R06.00 Dyspnea, unspecified (principal); Z79.899 Other long term (current) drug therapy; Z79.52 Long term (current) use of systemic steroids; I10 Essential (primary) hypertension; K21.9 Gastro-esophageal reflux disease without esophagitis; F17.200 Nicotine dependence, unspecified, uncomplicated; Z45.02 Encounter for adjustment and management of automatic implantable cardiac defibrillator
CPT/HCPCS: 36415; 71045; 80053; 83880; 84484; 85025; 93005; 93010; 93284; 99285-25

== ENCOUNTER → 2019-12-14 | Outpatient (CLI) | payer MEDICARE, OTHER ==
[2019-12-19 15:10] LABS: HPV 16 Negative (Negative); HPV 18 Negative (Negative); HPV OTHER HR TYPES Positive (Negative)
== END ==
LOC: LAB 18:27 → LAB SHORT 18:27
PROVIDERS: Nurse Practitioner Family
DX: Z12.4 Encounter for screening for malignant neoplasm of cervix (principal)
CPT/HCPCS: 87624; 87625; G0123

== ENCOUNTER → 2020-01-14 | Outpatient (CLI) | payer MEDICARE, OTHER ==
[~2020-01-14] MED LIST changes: +TRAZ100 PO
== END | disposition home or self-care (01) ==
LOC: LAB SHORT 15:18 → PLD 15:18
DX: R87.611 Atypical squamous cells cannot exclude high grade squamous intraepithelial lesion on cytologic smear of cervix (ASC-H) (principal)
CPT/HCPCS: 88305; 88342

== ENCOUNTER 2020-02-05 11:55 | Day surgery (SDC) | payer MEDICARE, OTHER ==
[~2020-02-05] VITALS: Ht 170.2 cm; Wt 109.7 kg
--- NOTE | 2020-02-05 13:08 | NUR ---
02/05/20 0754 Laurel Kong PT. WANTED HER TO COME BACK TO SEE HER BEFORE GOING IN FOR HER PROCEDURE. CHECKED TWICE IN WAITING ROOM BUT WASN'T THERE. PT. MADE AWARE OF THIS.
--- NOTE | 2020-02-05 15:12 | NUR ---
02/05/20 1512 Laurel Kong IN [place] PT. VERBALIZES FEELING HER BED FEELING WET. OBSERVED THAT THE IV EXTENSION HAD COME LOOSE FROM IV TUBING. BLOOD ON HER GOWN & IN HER BED. PT. GIVEN NEW GOWN & WARM BLANKET & WIPES TO CLEAN HER SELF.
== END 2020-02-05 14:35 | disposition home or self-care (01) ==
LOC: ORSCSDS 11:55
PROVIDERS: Student in an Organized Health Care Education/Training Program
PROC: 0DBM8ZX Excision of Descending Colon, Via Natural or Artificial Opening Endoscopic, Diagnostic (ICD-10-PCS; principal; 2020-02-05 13:30)
PROC: 0DBL8ZX Excision of Transverse Colon, Via Natural or Artificial Opening Endoscopic, Diagnostic (ICD-10-PCS; principal; 2020-02-05 13:30)
PROC: 0DBK8ZX Excision of Ascending Colon, Via Natural or Artificial Opening Endoscopic, Diagnostic (ICD-10-PCS; principal; 2020-02-05 13:30)
PROC: 0DBE8ZX Excision of Large Intestine, Via Natural or Artificial Opening Endoscopic, Diagnostic (ICD-10-PCS; principal; 2020-02-05 13:30)
DX: K58.0 Irritable bowel syndrome with diarrhea (principal); D12.2 Benign neoplasm of ascending colon; D12.3 Benign neoplasm of transverse colon; D12.4 Benign neoplasm of descending colon; K57.30 Diverticulosis of large intestine without perforation or abscess without bleeding; I10 Essential (primary) hypertension; G47.33 Obstructive sleep apnea (adult) (pediatric); J45.909 Unspecified asthma, uncomplicated; F17.210 Nicotine dependence, cigarettes, uncomplicated; E66.01 Morbid (severe) obesity due to excess calories; Z68.37 Body mass index [BMI] 37.0-37.9, adult; Z79.899 Other long term (current) drug therapy
CPT/HCPCS: 88305; J2405; J2704; J7120

== ENCOUNTER → 2020-02-18 | Outpatient (CLI) | payer MEDICARE, OTHER | END | disposition home or self-care (01) | LOC: PLD 14:20 → LAB SHORT 14:20 | DX: N87.9 Dysplasia of cervix uteri, unspecified (principal) | CPT/HCPCS: 88305 ==

== ENCOUNTER 2020-02-27 12:27 | Emergency (ER) | payer MEDICARE, OTHER ==
[~2020-02-27] VITALS: Ht 170.2 cm; Wt 115.2 kg
[2020-02-27 12:55] LABS: BASOPHILS ABSOLUTE AUTO 0.05 K/mm3 (0.00-0.23); BASOPHILS PERCENT AUTO 1 % (0-2); EOSINOPHILS ABSOLUTE AUTO 0.22 K/mm3 (0.00-0.68); EOSINOPHILS PERCENT AUTO 3 % (0-6); Hematocrit 48.1 % (33.0-51.0); Hemoglobin 15.8 g/dL (11.5-16.0); IMMATURE GRAN ABSOLUTE AUTO 0.03 K/mm3 (0.00-0.10); IMMATURE GRAN PERCENT AUTO 0 % (0-1); LYMPHOCYTES ABSOLUTE AUTO 1.72 K/mm3 (0.84-5.20); LYMPHOCYTES PERCENT AUTO 23 % (21-46); MONOCYTES ABSOLUTE AUTO 0.52 K/mm3 (0.16-1.47); MONOCYTES PERCENT AUTO 7 % (4-13); Mean Corpuscular HGB 30.4 pg (26.0-34.0); Mean Corpuscular HGB Conc 32.8 g/dL (31.5-36.5); Mean Corpuscular Volume 93 fL (80-100); NEUTROPHILS ABSOLUTE AUTO 4.97 K/mm3 (1.96-9.15); NEUTROPHILS PERCENT AUTO 66 % (41-73); RDW Coefficient Variation 13.2 % (11.7-14.2); RDW Standard Deviation 45.1 fL (35.1-46.3); White Blood Cell Count 7.51 K/mm3 (4.00-11.30)
[2020-02-27 12:56] LABS: Mean Platelet Volume 11.2 fL (9.1-12.4); Platelet Count 133 K/mm3 (150-400)
[2020-02-27 13:12] LABS: Alanine Aminotransfer (ALT/SGP 32 U/L (12-78); Albumin, Blood 3.7 g/dL (3.4-5.0); Albumin/Globulin Ratio 0.9 (0.8-1.8); Alk Phos 67 U/L (50-136); Anion Gap 6 mmol/L (6-16); Aspartate Aminotrans (AST/SGOT 24 U/L (12-37); Bilirubin, Total 0.5 mg/dL (0.1-1.0); Blood Urea Nitrogen 12 mg/dL (8-24); Bun/Creatinine Ratio 14.1 (12.0-20.0); CO2, Blood 27 mmol/L (21-32); Calcium, Blood 9.6 mg/dL (8.5-10.1); Chloride, Blood 109 mmol/L (98-108); Creatinine, Blood 0.85 mg/dL (0.40-1.00); Globulin, Blood 4.1 g/dL (2.2-4.0); Glomerular Filtration Rate >60 (60-); Glucose, Blood 91 mg/dL (70-99); Potassium, Blood 3.9 mmol/L (3.5-5.5); Sodium, Blood 142 mmol/L (136-145); Total Protein, Blood 7.8 g/dL (6.4-8.2)
[2020-02-27 14:41] LABS: Source, Urine Clean Catch
[2020-02-27 15:07] LABS: Appearance, Urine Clear (Clear); Bilirubin, Urine Neg (Neg); Blood, Urine Neg (Neg); Color, Urine Yellow (P-Yellow); Glucose Qualitative, Urine Neg (Neg); Ketones, Urine Neg (Neg); Leukocyte Esterase, Urine 2+ (Neg); Nitrite, Urine Neg (Neg); Protein, Urine Neg (Neg); Urobilinogen, Urine NORM (Normal)
[2020-02-27 15:32] LABS: Bacteria Few /hpf; Red Blood Cells, Urine Rare /hpf (0-2); Squamous Epithelial Cells Not Seen /hpf (Few)
[2020-02-27 16:08] LABS: International Normalized Ratio 0.92; Prothrombin Time Results 9.9 Sec (9.7-11.5)
== END 2020-02-27 19:03 | disposition home or self-care (01) ==
LOC: ER 12:27
PROVIDERS: Emergency Medicine; Physician Assistant
DX: R53.1 Weakness (principal); R53.83 Other fatigue; R19.7 Diarrhea, unspecified; R42 Dizziness and giddiness; R60.0 Localized edema; I11.0 Hypertensive heart disease with heart failure; I50.9 Heart failure, unspecified; K21.9 Gastro-esophageal reflux disease without esophagitis; Z79.899 Other long term (current) drug therapy; Z87.891 Personal history of nicotine dependence; Z86.73 Personal history of transient ischemic attack (TIA), and cerebral infarction without residual deficits
CPT/HCPCS: 36415; 70450; 71045; 72129; 72132; 80053; 81001; 82607; 82746; 83880; 85025; 85610; 87086; 93005; 93010; 96360; 96361; 96372-59; 99284-25; J1885; J7120; Q9967

== ENCOUNTER 2020-06-26 14:08 | Emergency (ER) | payer MEDICARE, OTHER ==
[~2020-06-26] VITALS: Ht 170.2 cm; Wt 112.9 kg
[2020-06-26] MEDS ORDERED: LIDO700A20 TOP (16:53)
[2020-06-26] MEDS ORDERED: CYCL10 PO (16:53)
[2020-10-27] MEDS ORDERED: Aspir 8181 MG PO (12:03)
[2020-10-27] MEDS ORDERED: CEFTRIAXONE2 G1 IV (12:04)
[2020-10-27] MEDS ORDERED: Vancomycin1 GM/2501 IV (12:05)
== END 2020-06-26 17:10 | disposition home or self-care (01) ==
LOC: ER 14:08
DX: M25.562 Pain in left knee (principal); K21.9 Gastro-esophageal reflux disease without esophagitis; M79.605 Pain in left leg; I11.0 Hypertensive heart disease with heart failure; I50.9 Heart failure, unspecified; I25.2 Old myocardial infarction; Z87.891 Personal history of nicotine dependence; Z79.899 Other long term (current) drug therapy
CPT/HCPCS: 73562-LT; 93971; 99284-25; A9270

== ENCOUNTER 2020-09-24 07:28 | Day surgery (SDC) | payer MEDICARE, OTHER ==
[~2020-09-24] VITALS: Ht 167.6 cm; Wt 113.6 kg
[~2020-09-24 07:28] MED LIST changes: +CYCL10 PO; +LIDO700A20 TOP
--- NOTE | 2020-09-24 11:40 | NUR ---
PT TRANSFERED FROM FLOOR VIA BED. History, Chart, Medications and Allergies reviewed before start of procedure. Lungs clear T/O to Auscultation. Patient confirms NPO status and agrees with scheduled surgery. Pre-Op teaching done. Pt verbalizes understanding.
--- NOTE | 2020-09-24 13:08 | NUR ---
TOOK OVER PATIENT CARE AFTER REPORT WAS RECEIVED.
--- NOTE | 2020-09-24 14:08 | NUR ---
09/24/20 1408 Micah Pacheco PATIENT ARRIVED TO OR WITH 2ND PACK OF PLATELETS INFUSING IN 20 G IN LFA
--- NOTE | 2020-09-24 19:10 | NUR ---
SHIFT SUMMARY PATIENT POD 0 L TKA. ALTERNATELY SNORING OR AWAKE AND RATING PAIN 10/10. CHRONIC PAIN AND TAKES NARCOTICS PAIN MEDS DAILY. MEDICATED FOR PAIN PER EMAR AND PATIENT HAS BEEN SLEEPING SINCE 1744. 2L O2 VIA NC TO KEEP SATS ABOVE 90%. TOLERATED SIPS OF WATER AND BITES OF JELLO. WAKES WHEN SPOKEN TO AND TOUCHED ON THE SHOULDER. REPORT GIVEN TO ARMATURE VARNISHER RN.
[2020-09-25 04:06] LABS: BASOPHILS ABSOLUTE AUTO 0.01 K/mm3 (0.00-0.23); BASOPHILS PERCENT AUTO 0 % (0-2); EOSINOPHILS ABSOLUTE AUTO 0.01 K/mm3 (0.00-0.68); EOSINOPHILS PERCENT AUTO 0 % (0-6); Hematocrit 39.4 % (33.0-51.0); Hemoglobin 12.6 g/dL (11.5-16.0); IMMATURE GRAN ABSOLUTE AUTO 0.03 K/mm3 (0.00-0.10); IMMATURE GRAN PERCENT AUTO 0 % (0-1); LYMPHOCYTES ABSOLUTE AUTO 0.64 K/mm3 (0.84-5.20); LYMPHOCYTES PERCENT AUTO 9 % (21-46); MONOCYTES ABSOLUTE AUTO 0.42 K/mm3 (0.16-1.47); MONOCYTES PERCENT AUTO 6 % (4-13); Mean Corpuscular HGB 30.5 pg (26.0-34.0); Mean Corpuscular Volume 95 fL (80-100); NEUTROPHILS ABSOLUTE AUTO 6.15 K/mm3 (1.96-9.15); NEUTROPHILS PERCENT AUTO 85 % (41-73); RDW Coefficient Variation 13.2 % (11.7-14.2); RDW Standard Deviation 46.8 fL (35.1-46.3); Red Blood Cell Count 4.13 M/mm3 (3.80-5.20); White Blood Cell Count 7.26 K/mm3 (4.00-11.30)
[2020-09-25 04:10] LABS: Platelet Count 98 K/mm3 (150-400)
[2020-09-25 04:29] LABS: Anion Gap 3 mmol/L (6-16); Blood Urea Nitrogen 17 mg/dL (8-24); CO2, Blood 24 mmol/L (21-32); Calcium, Blood 8.3 mg/dL (8.5-10.1); Chloride, Blood 110 mmol/L (98-108); Glomerular Filtration Rate >60 (60-); Glucose, Blood 111 mg/dL (70-99); Magnesium, Blood 1.9 mg/dL (1.6-2.4); Potassium, Blood 4.3 mmol/L (3.5-5.5); Sodium, Blood 137 mmol/L (136-145)
--- NOTE | 2020-09-25 05:18 | NUR ---
SHIFT SUMMARY LYING IN SEMI FOWLERS WITH EYES CLOSED, HAS RESTED WELL. LEFT KNEE DAFNE WRAP REMAIN C/D/I, DENIES N/T. AMBULATED WITH GB/FWW AND SBA. LEFT FA SL PIV IS PATENT, FLUSHING WITH EASE. RIGHT WRIST SL PIV IS PATENT, FLUSHING WITH EASE. ODALIS'S/SCD'S TO BLE. POLAR JEFFERSON TO LLE. NO FURTHER SIGNIFICANT CHANGES NOTED. DENIES PAIN, DISCOMFORT OR FURTHER NEEDS AT THIS TIME. SAFETY MEASURES IN PLACE. WILL CONTINUE TO MONITOR AND ADDRESS NEEDS THEY ARISE AND GIVE HAND OFF TO ONCOMING SHIFT USING SBAR.
--- NOTE | 2020-09-25 09:00 | NUR ---
PT workng with pt
--- NOTE | 2020-09-25 10:36 | NUR ---
0715- dr lind rounding with NOC shift RN. 0704- recvd report from previous shift RN, pt sitting up in recliner, scd on, cryo in place. pt had removed ODALIS hose. spoke with Farrah, ortho graphics programmer, and DR Lind, educated pt on required ODALIS hose. pt states she has some larger ones that fit her better at home. requested pt's lacrosse coach bring compression stockings in today
--- NOTE | 2020-09-25 14:00 | NUR ---
provided pt and therapy etiquette coach with discharge instructions, printed education, removed peripheral IV wnl. pt and etiquette coach state understanding of instructions. prescriptions picked up from pharmacy prior to admission. pt's belongings transferred to awaiting vehicle via by therapy etiquette coach; pt transferred to awaiting vehicle via wheelchair
[2020-10-27] MEDS ORDERED: Aspir 8181 MG PO (12:03)
[2020-10-27] MEDS ORDERED: CEFTRIAXONE2 G1 IV (12:04)
[2020-10-27] MEDS ORDERED: Vancomycin1 GM/2501 IV (12:05)
== END 2020-09-25 11:20 | disposition home or self-care (01) ==
LOC: ORSCMMR 07:28 → ORD 10:30 → ORSCMMR 10:30 → SURS 15:00 → ORSCMMR 09-25 11:20
PROVIDERS: Orthopaedic Surgery
PROC: 0SRD069 Replacement of Left Knee Joint with Oxidized Zirconium on Polyethylene Synthetic Substitute, Cemented, Open Approach (ICD-10-PCS; principal; 2020-09-25)
PROC: 8E0YXBZ Computer Assisted Procedure of Lower Extremity (ICD-10-PCS; principal; 2020-09-25)
DX: M17.12 Unilateral primary osteoarthritis, left knee (principal); Z95.0 Presence of cardiac pacemaker; I10 Essential (primary) hypertension; G47.33 Obstructive sleep apnea (adult) (pediatric); J44.9 Chronic obstructive pulmonary disease, unspecified; E66.01 Morbid (severe) obesity due to excess calories; Z68.41 Body mass index [BMI] 40.0-44.9, adult; Z79.899 Other long term (current) drug therapy
CPT/HCPCS: 36415; 36430; 73560-LT; 80048; 83735; 85025; 86850; 86900; 86901; 97110; 97116; 97162; A9270; C1713; C1776; J0171; J0360; J0690; J0735; J1100; J1650; J1885; J2060; J2250; J2405; J2704; J2795; J3010; J3370; J3420; J7030; J7120; P9035

== ENCOUNTER 2020-10-24 10:55 | Day surgery (SDC) | payer MEDICARE, OTHER ==
[~2020-10-24] VITALS: Ht 170.2 cm; Wt 112.3 kg
--- NOTE | 2020-10-24 12:09 | NUR ---
PT TO SDS VIA WC. Patient confirms NPO status and agrees with scheduled surgery. History, Chart, Medications and Allergies reviewed before start of procedure. Lungs clear T/O to Auscultation. + VOID. PT REFUSES PAS AND SLEEVES IN STEP DOWN, REPORTS CAUSES TOO MUCH PAIN. REQUESTING FOR PLACEMENT IN OR.
[2020-10-24 15:40] LABS: BODY FLUID RBC 0.111 M/mm3 (0-0); RBC Count, Synovial Fluid 111000 /mm3 (0-0); WBC Count, Synovial Fluid 586 /mm3 (0-180)
[2020-10-24 16:25] LABS: Appearance, Synovial Fluid Cloudy (Clear); Color, Synovial Fluid Red (None-P Yel); Eos, Synovial Fluid 1 % (0-2); Lymphs, Synovial Fluid 14 % (0-15); Monocytes/Macrophages, Synovia 14 % (0-65); Neutrophils, Synovial Fluid 71 % (0-24)
--- NOTE | 2020-10-24 17:24 | NUR ---
PATIENT ARRIVED FROM PACU TODAY 10/24/20 AT AROUND 1615. POD 0 LEFT KNEE I&D PATIENT IS ALERT AND ORIENTED X4. VS ARE WNL AND IS ON RA. PATIENT IS IN PAIN BUT HAS BEEN GIVEN IV DILAUDID AND TORADOL AT THIS TIME. PATIENTS LEFT LEG IS WRAPPED IN DAFNE WRAP FROM THE TOP OF HER THIGH DOWN TO HER FEET AND IS C/D/I. DENIES NUMBNESS AND TINGLING. SHE IS ABLE TO WIGGLE FINGERS AND TOES. SHE HAS TWO HEMOVACS ON THE LEFT LEG THAT ARE BOTH COMPRESSED WITH SMALL AMOUNT OF RED OUTPUT IN THEM. PATIENT IS CURRENTLY RESTING IN BED WITH CALL LIGHT IN REACH.
[2020-10-25 04:30] LABS: BASOPHILS ABSOLUTE AUTO 0.01 K/mm3 (0.00-0.23); BASOPHILS PERCENT AUTO 0 % (0-2); EOSINOPHILS PERCENT AUTO 0 % (0-6); Hematocrit 36.7 % (33.0-51.0); Hemoglobin 11.7 g/dL (11.5-16.0); IMMATURE GRAN ABSOLUTE AUTO 0.02 K/mm3 (0.00-0.10); IMMATURE GRAN PERCENT AUTO 0 % (0-1); LYMPHOCYTES PERCENT AUTO 11 % (21-46); MONOCYTES ABSOLUTE AUTO 0.32 K/mm3 (0.16-1.47); MONOCYTES PERCENT AUTO 5 % (4-13); Mean Corpuscular HGB Conc 31.9 g/dL (31.5-36.5); Mean Corpuscular Volume 97 fL (80-100); NEUTROPHILS ABSOLUTE AUTO 5.34 K/mm3 (1.96-9.15); NEUTROPHILS PERCENT AUTO 84 % (41-73); Platelet Count 137 K/mm3 (150-400); RDW Coefficient Variation 13.1 % (11.7-14.2); RDW Standard Deviation 47.3 fL (35.1-46.3); Red Blood Cell Count 3.78 M/mm3 (3.80-5.20); White Blood Cell Count 6.39 K/mm3 (4.00-11.30)
[2020-10-25 04:52] LABS: Anion Gap 4 mmol/L (6-16); Blood Urea Nitrogen 19 mg/dL (8-24); Bun/Creatinine Ratio 20.8 (12.0-20.0); CO2, Blood 25 mmol/L (21-32); Calcium, Blood 8.2 mg/dL (8.5-10.1); Chloride, Blood 110 mmol/L (98-108); Creatinine, Blood 0.91 mg/dL (0.40-1.00); Glomerular Filtration Rate >60 (60-); Glucose, Blood 124 mg/dL (70-99); Potassium, Blood 4.5 mmol/L (3.5-5.5); Sodium, Blood 139 mmol/L (136-145)
--- NOTE | 2020-10-25 05:10 | NUR ---
SHIFT SUMMARY POD#1 LEFT KNEE I+D. AAOX4. DISCOMFORT DECREASED WITH 1 ROXICODONE Q4H + TYLENOL Q6H AND TORADOL / DILAUDID FOR BREAKTHROUGH X1 EACH. NO NAUSEA/EMESIS. DAFNE WRAP TO LLE LOOSENED THIS SHIFT FOR COMFORT, C/D/I. PPP, DENIES N/T ALL EXTREMITIES, MOVES ALL TOES WELL. PT UP TO RESTROOM SBA WITH FWW, TOLERATES WELL. GOOD PO INTAKE + URINE OUTPUT. HEMOVAC X2 WITH 50 AND 25cc RED DRAINAGE OUT. ICE PRN TO LLE. PT RESTED INFREQUENTLY T/O NIGHT. IVF + ABX PER ORDERS. PT CURRENTLY RESTING IN BED WITH TV ON + EYES CLOSED. CALL LIGHT IN REACH.
--- NOTE | 2020-10-25 11:43 | NUR ---
DRAIN #[address] HAMMOND PER DR WILSON TELEPHONE ORDER.
[2020-10-25 13:45] LABS: Vancomycin, Trough 18.1 ug/mL (5.0-10.0)
--- NOTE | 2020-10-25 19:09 | NUR ---
SHIFT SUMMARY PT A&OX4, VSS/RA, SHANTEL PO, VOIDING, NEW PICC PLACED ANJELICA. S/P I&D LLE, DAFNE WRAP, ELEVATED. WBAT AMBULATE TO BSC. ABX AND IVF INFUSING PER EMAR. PAIN TREATED WITH 15 MG NORCO Q4P, AND 0.5 MG DILAUDID Q6P. REPORT PROVIDED TO CAT FRANCIS.
--- NOTE | 2020-10-26 05:10 | NUR ---
SHIFT SUMMARY NO ACUTE CHANGES OVERNIGHT. PT HAD SOME GOOD SLEEP AFTER MIDNIGHT. AOX4. TOLERATING PO INTAKE, DENIES N/V. VOIDING ADEQUATELY. AMBULATE TO BSC WITH 1 ASSIST. PT REPORTS THROBBING PAIN ON L KNEE. L KNEE WITH HEMOVAC, WITH ACEWRAP. PAIN MANAGED WITH DILAUDID, TORADOL, AND NORCO. ABX AND FLUIDS STILL INFUSING. CALL LIGHT WITHIN REACH. WILL PROVIDE REPORT TO ONCOMING NURSE.
[2020-10-26 16:07] LABS: Vancomycin, Trough 23.5 ug/mL (5.0-10.0)
--- NOTE | 2020-10-26 17:27 | NUR ---
SHIFT SUMMARY PT IS A/O X4. 1-2X ASSIST UP TO BSC. DAFNE WRAP IN PLACE TO L KNEE. DRAIN WAS REMOVED TODAY BY PHYSICIAN. PAIN HAS BEEN MANAGED WITH NORCO PER ORDERS; DILAUDED FOR BREAKTHROUGH PAIN. PT HAS BEEN TOLERATING PO INTAKE, VOIDING, AND HAD BM TODAY. PT RESTING AT THIS TIME, CALL LIGHT IN REACH.
--- NOTE | 2020-10-27 05:33 | NUR ---
PT A/OX4. BP SOFT, PT ASYMPTOMATIC. SCHEDULED MIDODRINE GIVEN. OTHER VSS ON RA. NORCO, DILAUDID, AND TORADOL UTILIZED TO MANAGE PAIN. UP W/ FWW AND SBA. SLEEPING B/W CARE. USING CALL LIGHT TO MAKE NEEDS KNOWN.
[2020-10-27] MEDS ORDERED: Aspir 8181 MG PO ×2 (12:03)
[2020-10-27] MEDS ORDERED: CEFTRIAXONE2 G1 IV ×2 (12:04)
[2020-10-27] MEDS ORDERED: Vancomycin1 GM/2501 IV ×2 (12:05)
--- NOTE | 2020-10-28 15:32 | NUR ---
DISCHARGE: PACKET PRINTED AND PT EDUCATED. PT GIVEN AQUACEL DRESSINGS FOR CHANGING WOUND DRESSING EVERY OTHER DAY. POWERGLIDE LEFT IN PLACE FOR ATC INFUSIONS AND PT GIVEN SCRIPTS FOR IV ANTIBIOTICS PER DR. WILSON. PT LEFT UNIT WITH ALEXANDRA GILLIS VIA WHEELCHAIR AT ABOUT 1410 ON 10/27.
== END 2020-10-27 16:00 | disposition home or self-care (01) ==
LOC: ORSCMMR 10:55 → SURS 10:55 → ORSCMMR 10:56 → ORD 13:00 → SURS 16:25 → ORSCMMR 10-27 16:00
PROVIDERS: Orthopaedic Surgery
PROC: 0SBD0ZZ Excision of Left Knee Joint, Open Approach (ICD-10-PCS; principal; 2020-10-24 13:00)
PROC: 0SRD0MZ Replacement of Left Knee Joint with Lateral Unicondylar Synthetic Substitute, Open Approach (ICD-10-PCS; principal; 2020-10-24 13:00)
DX: T81.31XA Disruption of external operation (surgical) wound, not elsewhere classified, initial encounter (principal); T81.32XA Disruption of internal operation (surgical) wound, not elsewhere classified, initial encounter; M17.12 Unilateral primary osteoarthritis, left knee; I10 Essential (primary) hypertension; J44.9 Chronic obstructive pulmonary disease, unspecified; I50.9 Heart failure, unspecified; G47.33 Obstructive sleep apnea (adult) (pediatric); F17.210 Nicotine dependence, cigarettes, uncomplicated; E66.01 Morbid (severe) obesity due to excess calories; Z68.38 Body mass index [BMI] 38.0-38.9, adult; Z79.899 Other long term (current) drug therapy
CPT/HCPCS: 36415; 36569; 71045; 80048; 80202; 82565; 83735; 85025; 87070; 87071; 87075; 87205; 88304; 89051; 94760; 97110; 97161; 97165; 97535; A9270; C1751; C1776; J0171; J0690; J0735; J1100; J1170; J1650; J1885; J2250; J2405; J2704; J2795; J3010; J3370; J7050; J7120

== ENCOUNTER 2020-10-30 13:17 | Day surgery (SDC) | payer MEDICARE, OTHER ==
[~2020-10-30 13:17] MED LIST changes: +Aspir 8181 MG PO; +CEFTRIAXONE2 G1 IV; +Vancomycin1 GM/2501 IV
== END 2020-10-30 15:38 | disposition home or self-care (01) ==
LOC: ATC 13:17
DX: T81.30XA Disruption of wound, unspecified, initial encounter (principal)
CPT/HCPCS: 96365; 96367; J0696; J3370; J7050

== ENCOUNTER 2020-10-31 00:26 | Day surgery (SDC) | payer MEDICARE, OTHER ==
[~2020-10-31] VITALS: Ht 170.2 cm; Wt 114.0 kg
== END 2020-10-31 15:13 | disposition home or self-care (01) ==
LOC: ATC 00:26
DX: T81.30XA Disruption of wound, unspecified, initial encounter (principal)
CPT/HCPCS: 96365; 96368; J0696; J3370; J7050

== ENCOUNTER 2020-11-03 00:13 | Day surgery (SDC) | payer MEDICARE, OTHER ==
[2020-11-03 14:14] LABS: Creatinine, Blood 1.01 mg/dL (0.40-1.00); Vancomycin, Trough 10.9 ug/mL (5.0-10.0)
== END 2020-11-03 16:07 | disposition home or self-care (01) ==
LOC: ATC 00:13
PROVIDERS: Orthopaedic Surgery
DX: T81.31XD Disruption of external operation (surgical) wound, not elsewhere classified, subsequent encounter (principal); Z96.652 Presence of left artificial knee joint
CPT/HCPCS: 80202; 82565; J0696; J3370; J7050

== ENCOUNTER 2020-11-05 03:56 | Day surgery (SDC) | payer MEDICARE, OTHER | END 2020-11-05 15:11 | disposition home or self-care (01) | LOC: ATC 03:56 | DX: T81.31XA Disruption of external operation (surgical) wound, not elsewhere classified, initial encounter (principal); Y83.8 Other surgical procedures as the cause of abnormal reaction of the patient, or of later complication, without mention of misadventure at the time of the procedure; Z96.652 Presence of left artificial knee joint | CPT/HCPCS: 96365; 96366; 96368; J0696; J3370; J7050 ==

== ENCOUNTER 2020-11-06 00:50 | Day surgery (SDC) | payer MEDICARE, OTHER ==
[2020-11-06 15:14] LABS: Creatinine, Blood 0.75 mg/dL (0.40-1.00); Vancomycin, Trough 7.8 ug/mL (5.0-10.0)
== END 2020-11-06 16:00 | disposition home or self-care (01) ==
LOC: ATC 00:50
PROVIDERS: Orthopaedic Surgery
DX: T81.31XA Disruption of external operation (surgical) wound, not elsewhere classified, initial encounter (principal); Y83.8 Other surgical procedures as the cause of abnormal reaction of the patient, or of later complication, without mention of misadventure at the time of the procedure; Z96.652 Presence of left artificial knee joint
CPT/HCPCS: 80202; 82565; 96365; 96368; J0696; J3370; J7050

== ENCOUNTER 2020-11-07 01:03 | Day surgery (SDC) | payer MEDICARE, OTHER | END 2020-11-07 16:40 | disposition home or self-care (01) | LOC: ATC 01:03 | DX: T81.31XA Disruption of external operation (surgical) wound, not elsewhere classified, initial encounter (principal); Y83.8 Other surgical procedures as the cause of abnormal reaction of the patient, or of later complication, without mention of misadventure at the time of the procedure; Z95.0 Presence of cardiac pacemaker; Z96.652 Presence of left artificial knee joint; K21.9 Gastro-esophageal reflux disease without esophagitis; M19.90 Unspecified osteoarthritis, unspecified site; I11.0 Hypertensive heart disease with heart failure; I50.9 Heart failure, unspecified; M06.9 Rheumatoid arthritis, unspecified; G47.30 Sleep apnea, unspecified; Z87.891 Personal history of nicotine dependence | CPT/HCPCS: J0696; J3370; J7050 ==

== ENCOUNTER 2020-11-08 00:51 | Day surgery (SDC) | payer MEDICARE, OTHER | END 2020-11-08 15:45 | disposition home or self-care (01) | LOC: ATC 00:51 | DX: T81.31XA Disruption of external operation (surgical) wound, not elsewhere classified, initial encounter (principal); Y83.8 Other surgical procedures as the cause of abnormal reaction of the patient, or of later complication, without mention of misadventure at the time of the procedure; Z96.652 Presence of left artificial knee joint; Z95.0 Presence of cardiac pacemaker; Z87.891 Personal history of nicotine dependence | CPT/HCPCS: J0696; J3370; J7050 ==

== ENCOUNTER 2020-11-10 00:35 | Day surgery (SDC) | payer MEDICARE, OTHER ==
[2020-11-10 14:34] LABS: Creatinine, Blood 0.81 mg/dL (0.40-1.00); Vancomycin, Trough 10.4 ug/mL (5.0-10.0)
== END 2020-11-10 16:11 | disposition home or self-care (01) ==
LOC: ATC 00:35
PROVIDERS: Orthopaedic Surgery
DX: T81.31XA Disruption of external operation (surgical) wound, not elsewhere classified, initial encounter (principal); I11.0 Hypertensive heart disease with heart failure; I50.9 Heart failure, unspecified; M06.9 Rheumatoid arthritis, unspecified; J45.909 Unspecified asthma, uncomplicated; Y83.8 Other surgical procedures as the cause of abnormal reaction of the patient, or of later complication, without mention of misadventure at the time of the procedure; Z96.652 Presence of left artificial knee joint; Z95.0 Presence of cardiac pacemaker; Z87.891 Personal history of nicotine dependence
CPT/HCPCS: 80202; 82565; J0696; J3370; J7050

== ENCOUNTER 2020-11-11 04:20 | Day surgery (SDC) | payer MEDICARE, OTHER | END 2020-11-11 15:25 | disposition home or self-care (01) | LOC: ATC 04:20 | DX: T81.31XA Disruption of external operation (surgical) wound, not elsewhere classified, initial encounter (principal); I10 Essential (primary) hypertension; J45.909 Unspecified asthma, uncomplicated; K21.9 Gastro-esophageal reflux disease without esophagitis; Y83.8 Other surgical procedures as the cause of abnormal reaction of the patient, or of later complication, without mention of misadventure at the time of the procedure; Z96.652 Presence of left artificial knee joint | CPT/HCPCS: J0696; J3370; J7050 ==

== ENCOUNTER 2020-11-12 02:25 | Day surgery (SDC) | payer MEDICARE, OTHER | END 2020-11-12 15:20 | disposition home or self-care (01) | LOC: ATC 02:25 | DX: D61.818 Other pancytopenia (principal); C91.02 Acute lymphoblastic leukemia, in relapse; T81.30XA Disruption of wound, unspecified, initial encounter; I10 Essential (primary) hypertension; K21.9 Gastro-esophageal reflux disease without esophagitis; J45.909 Unspecified asthma, uncomplicated | CPT/HCPCS: 96365; 96366; 96368; J0696; J3370; J7050 ==

== ENCOUNTER 2020-11-13 00:57 | Day surgery (SDC) | payer MEDICARE, OTHER ==
[2020-11-13 14:19] LABS: Creatinine, Blood 0.83 mg/dL (0.40-1.00); Vancomycin, Trough 11.8 ug/mL (5.0-10.0)
== END 2020-11-13 15:24 | disposition home or self-care (01) ==
LOC: ATC 00:57
PROVIDERS: Orthopaedic Surgery
DX: T81.31XA Disruption of external operation (surgical) wound, not elsewhere classified, initial encounter (principal); I11.0 Hypertensive heart disease with heart failure; I50.9 Heart failure, unspecified; K21.9 Gastro-esophageal reflux disease without esophagitis; J45.909 Unspecified asthma, uncomplicated; M06.9 Rheumatoid arthritis, unspecified; G47.30 Sleep apnea, unspecified; Z85.828 Personal history of other malignant neoplasm of skin; Z87.891 Personal history of nicotine dependence; Z95.0 Presence of cardiac pacemaker; Z96.652 Presence of left artificial knee joint; Y83.8 Other surgical procedures as the cause of abnormal reaction of the patient, or of later complication, without mention of misadventure at the time of the procedure
CPT/HCPCS: 80202; 82565; 96365; 96366; 96368; J0696; J3370; J7050

== ENCOUNTER 2020-11-20 02:03 | Day surgery (SDC) | payer MEDICARE, OTHER ==
[2020-11-20 14:28] LABS: Creatinine, Blood 0.91 mg/dL (0.40-1.00); Vancomycin, Trough 10.1 ug/mL (5.0-10.0)
== END 2020-11-20 15:35 | disposition home or self-care (01) ==
LOC: ATC 02:03
PROVIDERS: Orthopaedic Surgery
DX: T81.31XA Disruption of external operation (surgical) wound, not elsewhere classified, initial encounter (principal); Y83.8 Other surgical procedures as the cause of abnormal reaction of the patient, or of later complication, without mention of misadventure at the time of the procedure; C91.02 Acute lymphoblastic leukemia, in relapse; D61.818 Other pancytopenia; I11.0 Hypertensive heart disease with heart failure; I50.9 Heart failure, unspecified; J45.909 Unspecified asthma, uncomplicated; Z87.891 Personal history of nicotine dependence
CPT/HCPCS: 80202; 82565; 96365; 96368; J0696; J3370; J7050

== ENCOUNTER 2020-11-21 01:23 | Day surgery (SDC) | payer MEDICARE, OTHER | END 2020-11-21 15:15 | disposition home or self-care (01) | LOC: ATC 01:23 | DX: T81.31XA Disruption of external operation (surgical) wound, not elsewhere classified, initial encounter (principal); Y83.8 Other surgical procedures as the cause of abnormal reaction of the patient, or of later complication, without mention of misadventure at the time of the procedure; Z96.652 Presence of left artificial knee joint | CPT/HCPCS: 96365; 96368; J0696; J3370; J7050 ==

== ENCOUNTER 2020-11-22 13:28 | Day surgery (SDC) | payer MEDICARE, OTHER | END 2020-11-22 15:07 | disposition home or self-care (01) | LOC: ATC 13:28 | DX: T81.31XA Disruption of external operation (surgical) wound, not elsewhere classified, initial encounter (principal); Y83.8 Other surgical procedures as the cause of abnormal reaction of the patient, or of later complication, without mention of misadventure at the time of the procedure; I11.0 Hypertensive heart disease with heart failure; I50.9 Heart failure, unspecified; K21.9 Gastro-esophageal reflux disease without esophagitis; J45.909 Unspecified asthma, uncomplicated; I87.2 Venous insufficiency (chronic) (peripheral); M06.9 Rheumatoid arthritis, unspecified; G47.30 Sleep apnea, unspecified; Z85.828 Personal history of other malignant neoplasm of skin; Z87.891 Personal history of nicotine dependence; Z96.652 Presence of left artificial knee joint; Z95.0 Presence of cardiac pacemaker | CPT/HCPCS: 96365; 96366; 96368; J0696; J3370; J7050 ==

== ENCOUNTER 2020-11-23 13:29 | Day surgery (SDC) | payer MEDICARE, OTHER | END 2020-11-23 15:06 | disposition home or self-care (01) | LOC: ATC 13:29 | DX: T81.31XA Disruption of external operation (surgical) wound, not elsewhere classified, initial encounter (principal); I10 Essential (primary) hypertension; J45.909 Unspecified asthma, uncomplicated; Y83.8 Other surgical procedures as the cause of abnormal reaction of the patient, or of later complication, without mention of misadventure at the time of the procedure; Z96.652 Presence of left artificial knee joint; Z95.0 Presence of cardiac pacemaker; Z87.891 Personal history of nicotine dependence | CPT/HCPCS: 96365; 96366; 96367; J0696; J3370; J7050 ==

== ENCOUNTER 2020-11-24 01:29 | Day surgery (SDC) | payer MEDICARE, OTHER ==
[2020-11-24 14:23] LABS: Creatinine, Blood 0.94 mg/dL (0.40-1.00); Vancomycin, Trough 11.2 ug/mL (5.0-10.0)
--- NOTE | 2020-11-24 16:07 | NUR ---
PT REPORTS BURNING PAIN TO LEFT KNEE (SITE OF KNEE REPLACEMENT) PT EDUCATED TO CALL DOCTOR REGARDING THIS DEVELOPING SYMPTOM. PT VERBALIZED UNDERSTANDING
== END 2020-11-24 16:07 | disposition home or self-care (01) ==
LOC: ATC 01:29
PROVIDERS: Orthopaedic Surgery
DX: T81.31XA Disruption of external operation (surgical) wound, not elsewhere classified, initial encounter (principal); Y83.8 Other surgical procedures as the cause of abnormal reaction of the patient, or of later complication, without mention of misadventure at the time of the procedure; Z96.652 Presence of left artificial knee joint
CPT/HCPCS: 36592; 80202; 82565; 96365; 96367; J0696; J3370; J7050

== ENCOUNTER 2020-11-25 04:05 | Day surgery (SDC) | payer MEDICARE, OTHER | END 2020-11-25 15:05 | disposition home or self-care (01) | LOC: ATC 04:05 | DX: T81.31XA Disruption of external operation (surgical) wound, not elsewhere classified, initial encounter (principal); Z96.652 Presence of left artificial knee joint | CPT/HCPCS: 96365; 96368; J0696; J3370; J7050 ==

== ENCOUNTER 2020-11-26 01:03 | Day surgery (SDC) | payer MEDICARE, OTHER | END 2020-11-26 15:08 | disposition home or self-care (01) | LOC: ATC 01:03 | DX: T81.30XA Disruption of wound, unspecified, initial encounter (principal); I11.0 Hypertensive heart disease with heart failure; I50.9 Heart failure, unspecified; K21.9 Gastro-esophageal reflux disease without esophagitis | CPT/HCPCS: 96365; 96366; 96368; J0696; J3370; J7050 ==

== ENCOUNTER 2020-11-27 02:11 | Day surgery (SDC) | payer MEDICARE, OTHER | END 2020-11-27 15:15 | disposition home or self-care (01) | LOC: ATC 02:11 | DX: T81.31XA Disruption of external operation (surgical) wound, not elsewhere classified, initial encounter (principal); I10 Essential (primary) hypertension; J45.909 Unspecified asthma, uncomplicated; Y83.8 Other surgical procedures as the cause of abnormal reaction of the patient, or of later complication, without mention of misadventure at the time of the procedure; Z96.652 Presence of left artificial knee joint; Z87.891 Personal history of nicotine dependence | CPT/HCPCS: 96365; 96368; J0696; J3370; J7050 ==

== ENCOUNTER 2020-11-28 00:10 | Day surgery (SDC) | payer MEDICARE, OTHER | END 2020-11-28 15:11 | disposition home or self-care (01) | LOC: ATC 00:10 | DX: T81.31XA Disruption of external operation (surgical) wound, not elsewhere classified, initial encounter (principal); Y83.8 Other surgical procedures as the cause of abnormal reaction of the patient, or of later complication, without mention of misadventure at the time of the procedure; Z96.652 Presence of left artificial knee joint | CPT/HCPCS: 96365; 96368; J0696; J3370; J7050 ==

== ENCOUNTER 2020-12-05 11:59 | Emergency (ER) | payer MEDICARE, OTHER ==
[~2020-12-05] VITALS: Ht 170.2 cm; Wt 108.9 kg
[2020-12-05 13:45] LABS: BASOPHILS ABSOLUTE AUTO 0.06 K/mm3 (0.00-0.23); BASOPHILS PERCENT AUTO 1 % (0-2); EOSINOPHILS ABSOLUTE AUTO 0.25 K/mm3 (0.00-0.68); EOSINOPHILS PERCENT AUTO 3 % (0-6); Hematocrit 44.3 % (33.0-51.0); Hemoglobin 14.4 g/dL (11.5-16.0); IMMATURE GRAN ABSOLUTE AUTO 0.01 K/mm3 (0.00-0.10); IMMATURE GRAN PERCENT AUTO 0 % (0-1); LYMPHOCYTES ABSOLUTE AUTO 1.45 K/mm3 (0.84-5.20); LYMPHOCYTES PERCENT AUTO 19 % (21-46); MONOCYTES ABSOLUTE AUTO 0.47 K/mm3 (0.16-1.47); MONOCYTES PERCENT AUTO 6 % (4-13); Mean Corpuscular HGB 30.4 pg (26.0-34.0); Mean Corpuscular HGB Conc 32.5 g/dL (31.5-36.5); Mean Corpuscular Volume 94 fL (80-100); Mean Platelet Volume 10.7 fL (9.1-12.4); NEUTROPHILS ABSOLUTE AUTO 5.41 K/mm3 (1.96-9.15); NEUTROPHILS PERCENT AUTO 71 % (41-73); Platelet Count 169 K/mm3 (150-400); RDW Coefficient Variation 12.7 % (11.7-14.2); RDW Standard Deviation 44.2 fL (35.1-46.3); Red Blood Cell Count 4.73 M/mm3 (3.80-5.20); White Blood Cell Count 7.65 K/mm3 (4.00-11.30)
[2020-12-05 14:12] LABS: Alanine Aminotransfer (ALT/SGP 25 U/L (12-78); Albumin, Blood 3.5 g/dL (3.4-5.0); Albumin/Globulin Ratio 0.9 (0.8-1.8); Alk Phos 60 U/L (50-136); Anion Gap 1 mmol/L (6-16); Aspartate Aminotrans (AST/SGOT 25 U/L (12-37); Bilirubin, Total 0.3 mg/dL (0.1-1.0); Blood Urea Nitrogen 12 mg/dL (8-24); Bun/Creatinine Ratio 13.2 (12.0-20.0); CO2, Blood 28 mmol/L (21-32); Calcium, Blood 8.9 mg/dL (8.5-10.1); Chloride, Blood 110 mmol/L (98-108); Creatinine, Blood 0.91 mg/dL (0.40-1.00); Globulin, Blood 3.7 g/dL (2.2-4.0); Glomerular Filtration Rate >60 (60-); Glucose, Blood 90 mg/dL (70-99); Potassium, Blood 4.2 mmol/L (3.5-5.5); Sodium, Blood 139 mmol/L (136-145); Total Protein, Blood 7.2 g/dL (6.4-8.2); Troponin I <0.015 ng/mL (0.000-0.040)
== END 2020-12-05 16:52 | disposition home or self-care (01) ==
LOC: ER 11:59
PROVIDERS: Physician Assistant
DX: R07.89 Other chest pain (principal); R10.11 Right upper quadrant pain; I11.0 Hypertensive heart disease with heart failure; I50.9 Heart failure, unspecified; K21.9 Gastro-esophageal reflux disease without esophagitis; F17.210 Nicotine dependence, cigarettes, uncomplicated; Z79.899 Other long term (current) drug therapy; Z79.82 Long term (current) use of aspirin
CPT/HCPCS: 71046; 80053; 83690; 84484; 85025; 93005; 93010; 99285-25

== ENCOUNTER → 2021-08-31 | Outpatient (CLI) | payer MEDICARE, OTHER ==
[2021-08-31 19:29] LABS: Alanine Aminotransfer (ALT/SGP 22 U/L (12-78); Albumin, Blood 3.6 g/dL (3.4-5.0); Albumin/Globulin Ratio 1.2 (0.8-1.8); Alk Phos 49 U/L (50-136); Anion Gap 2 mmol/L (6-16); Aspartate Aminotrans (AST/SGOT 18 U/L (12-37); Bilirubin, Total 0.3 mg/dL (0.1-1.0); Blood Urea Nitrogen 19 mg/dL (8-24); CO2, Blood 29 mmol/L (21-32); Calcium, Blood 9.1 mg/dL (8.5-10.1); Chloride, Blood 109 mmol/L (98-108); Creatinine, Blood 0.86 mg/dL (0.40-1.00); Globulin, Blood 2.9 g/dL (2.2-4.0); Glomerular Filtration Rate >60 (60-); Glucose, Blood 87 mg/dL (70-99); Phosphorus, Blood 3.6 mg/dL (2.5-4.9); Potassium, Blood 4.1 mmol/L (3.5-5.5); Sodium, Blood 140 mmol/L (136-145); Total Protein, Blood 6.5 g/dL (6.4-8.2)
== END | disposition home or self-care (01) ==
LOC: LAB SHORT 18:18 → LAB 18:18
PROVIDERS: Internal Medicine Hematology & Oncology
DX: D64.9 Anemia, unspecified (principal)
CPT/HCPCS: 80053; 84100

== ENCOUNTER 2023-12-22 15:18 | Emergency (ER) | payer MEDICARE, OTHER ==
[~2023-12-22] VITALS: Ht 167.6 cm; Wt 102.5 kg
[~2023-12-22 15:18] MED LIST changes: +ENTRESTO 49 MG1 EACH PO; +FAMO40 PO; +FARXIGA5 MG PO; +HYDACE10B PO; +ONDA4ODT MM; +PREG150 PO; -PREG75 PO; +Phentermine HCl30 MG
[2023-12-22 15:59] LABS: Source, Urine Straight Cath
[2023-12-22 16:04] LABS: Appearance, Urine Clear (Clear); Bilirubin, Urine Neg (Neg); Blood, Urine Neg (Neg); Color, Urine Yellow (P-Yellow); Glucose Qualitative, Urine 2+ (Neg); Ketones, Urine Neg (Neg); Leukocyte Esterase, Urine Neg (Neg); Nitrite, Urine Neg (Neg); Protein, Urine Neg (Neg); Specific Gravity, Urine 1.015 (1.003-1.022); Urobilinogen, Urine NORM (Normal)
[2023-12-22 16:05] LABS: BASOPHILS ABSOLUTE AUTO 0.02 K/mm3 (0.00-0.23); BASOPHILS PERCENT AUTO 1 % (0-2); EOSINOPHILS PERCENT AUTO 3 % (0-6); Hematocrit 42.7 % (33.0-51.0); Hemoglobin 14.4 g/dL (11.5-16.0); IMMATURE GRAN ABSOLUTE AUTO 0.01 K/mm3 (0.00-0.10); IMMATURE GRAN PERCENT AUTO 0 % (0-1); LYMPHOCYTES ABSOLUTE AUTO 1.33 K/mm3 (0.84-5.20); LYMPHOCYTES PERCENT AUTO 40 % (21-46); MONOCYTES PERCENT AUTO 9 % (4-13); Mean Corpuscular HGB 30.7 pg (26.0-34.0); Mean Corpuscular HGB Conc 33.7 g/dL (31.5-36.5); Mean Corpuscular Volume 91 fL (80-100); Mean Platelet Volume 10.6 fL (9.1-12.4); NEUTROPHILS PERCENT AUTO 48 % (41-73); Platelet Count 107 K/mm3 (150-400); RDW Coefficient Variation 12.7 % (11.7-14.2); RDW Standard Deviation 42.8 fL (35.1-46.3); Red Blood Cell Count 4.69 M/mm3 (3.80-5.20); White Blood Cell Count 3.36 K/mm3 (4.00-11.30)
[2023-12-22] MEDS ORDERED: NS 1,000 ML IV SCH ×2 (16:05→18:55)
[2023-12-22] MEDS ORDERED: Midodrine 5 MG Tab PO ONE (16:05)
[2023-12-22 16:22] LABS: Albumin, Blood 3.2 g/dL (3.4-5.0); Bilirubin, Total 0.4 mg/dL (0.1-1.0); Bun/Creatinine Ratio 20.3 (12.0-20.0); Calcium, Blood 8.6 mg/dL (8.5-10.1); Creatinine, Blood 1.77 mg/dL (0.40-1.00); Globulin, Blood 3.1 g/dL (2.2-4.0); Potassium, Blood 3.3 mmol/L (3.5-5.5); Total Protein, Blood 6.3 g/dL (6.4-8.2)
[2023-12-22] MEDS ORDERED: Potassium Chloride 20 MEQ TabCR PO ONE (16:55)
[2023-12-22 19:30] VITALS: BP 124/65
== END 2023-12-22 19:52 | disposition home or self-care (01) ==
LOC: ER 15:18
PROVIDERS: Emergency Medicine
DX: N17.9 Acute kidney failure, unspecified (principal); E87.6 Hypokalemia; R19.7 Diarrhea, unspecified; F17.210 Nicotine dependence, cigarettes, uncomplicated; K21.9 Gastro-esophageal reflux disease without esophagitis; J45.909 Unspecified asthma, uncomplicated; G47.30 Sleep apnea, unspecified; M19.90 Unspecified osteoarthritis, unspecified site; I11.0 Hypertensive heart disease with heart failure; I50.9 Heart failure, unspecified
CPT/HCPCS: 51701; 80053; 81003; 83735; 83880; 84484; 85025; 93005; 93010; 96360; 99285-25; A9270; J7030

== ENCOUNTER → 2024-05-15 | Outpatient (CLI) | payer MEDICARE, OTHER ==
[2024-05-22 17:55] LABS: HPV HIGH RISK BY TMA Detected; HPV SOURCE Cervical
[2024-05-23 16:39] LABS: HPV GENOTYPE 16 BY TMA Not Detected; HPV GENOTYPE 18/45 BY TMA Not Detected; HPVG SOURCE Cervical
== END ==
LOC: LAB 15:47 → LAB SHORT 15:47
PROVIDERS: Obstetrics & Gynecology
DX: Z01.419 Encounter for gynecological examination (general) (routine) without abnormal findings (principal)
CPT/HCPCS: 87624; 87625; G0123

== ENCOUNTER 2024-07-16 19:47 | Observation (INO) | payer MEDICARE, OTHER ==
[~2024-07-16] VITALS: Ht 167.6 cm; Wt 107.8 kg
[~2024-07-16 19:47] MED LIST changes: -MIDO5 PO; +MIDODRINE HCL10 M1 PO
[2024-07-16 21:05] LABS: BASOPHILS ABSOLUTE AUTO 0.06 K/mm3 (0.00-0.23); BASOPHILS PERCENT AUTO 1 % (0-2); EOSINOPHILS ABSOLUTE AUTO 0.16 K/mm3 (0.00-0.68); EOSINOPHILS PERCENT AUTO 2 % (0-6); Hematocrit 46.1 % (33.0-51.0); Hemoglobin 15.8 g/dL (11.5-16.0); IMMATURE GRAN ABSOLUTE AUTO 0.03 K/mm3 (0.00-0.10); IMMATURE GRAN PERCENT AUTO 0 % (0-1); LYMPHOCYTES ABSOLUTE AUTO 2.17 K/mm3 (0.84-5.20); LYMPHOCYTES PERCENT AUTO 31 % (21-46); MONOCYTES ABSOLUTE AUTO 0.64 K/mm3 (0.16-1.47); MONOCYTES PERCENT AUTO 9 % (4-13); Mean Corpuscular HGB 31.3 pg (26.0-34.0); Mean Corpuscular HGB Conc 34.3 g/dL (31.5-36.5); Mean Corpuscular Volume 92 fL (80-100); Mean Platelet Volume 11.2 fL (9.1-12.4); NEUTROPHILS ABSOLUTE AUTO 3.95 K/mm3 (1.96-9.15); NEUTROPHILS PERCENT AUTO 56 % (41-73); Platelet Count 138 K/mm3 (150-400); RDW Coefficient Variation 13.1 % (11.7-14.2); RDW Standard Deviation 44.2 fL (35.1-46.3); Red Blood Cell Count 5.04 M/mm3 (3.80-5.20); White Blood Cell Count 7.01 K/mm3 (4.00-11.30)
[2024-07-16 21:15] LABS: Albumin, Blood 3.6 g/dL (3.4-5.0); Albumin/Globulin Ratio 1.1 (0.8-1.8); Bilirubin, Total 0.5 mg/dL (0.1-1.0); Bun/Creatinine Ratio 16.1 (12.0-20.0); Creatinine, Blood 1.43 mg/dL (0.40-1.00); Globulin, Blood 3.4 g/dL (2.2-4.0); Potassium, Blood 3.9 mmol/L (3.5-5.5)
[2024-07-16] MEDS ORDERED: NS 1,000 ML IV SCH (22:50)
[2024-07-17] MEDS ORDERED: NS 1,000 ML IV SCH ×2 (03:10→17:00)
[2024-07-17 04:59] VITALS: BP 121/64
[2024-07-17 07:13] VITALS: BP 127/75
[2024-07-17 08:25] LABS: BASOPHILS ABSOLUTE AUTO 0.06 K/mm3 (0.00-0.23); BASOPHILS PERCENT AUTO 1 % (0-2); EOSINOPHILS ABSOLUTE AUTO 0.14 K/mm3 (0.00-0.68); EOSINOPHILS PERCENT AUTO 3 % (0-6); Hematocrit 41.8 % (33.0-51.0); Hemoglobin 14.2 g/dL (11.5-16.0); IMMATURE GRAN ABSOLUTE AUTO 0.04 K/mm3 (0.00-0.10); IMMATURE GRAN PERCENT AUTO 1 % (0-1); LYMPHOCYTES ABSOLUTE AUTO 1.86 K/mm3 (0.84-5.20); LYMPHOCYTES PERCENT AUTO 38 % (21-46); MONOCYTES ABSOLUTE AUTO 0.47 K/mm3 (0.16-1.47); MONOCYTES PERCENT AUTO 10 % (4-13); Mean Corpuscular HGB 31.2 pg (26.0-34.0); Mean Corpuscular Volume 92 fL (80-100); NEUTROPHILS ABSOLUTE AUTO 2.31 K/mm3 (1.96-9.15); NEUTROPHILS PERCENT AUTO 47 % (41-73); RDW Coefficient Variation 13.1 % (11.7-14.2); RDW Standard Deviation 43.9 fL (35.1-46.3); Red Blood Cell Count 4.55 M/mm3 (3.80-5.20); White Blood Cell Count 4.88 K/mm3 (4.00-11.30)
[2024-07-17 08:33] LABS: Bilirubin, Total 0.4 mg/dL (0.1-1.0); Bun/Creatinine Ratio 18.3 (12.0-20.0); Calcium, Blood 8.4 mg/dL (8.5-10.1); Creatinine, Blood 1.04 mg/dL (0.40-1.00); Globulin, Blood 2.9 g/dL (2.2-4.0); Potassium, Blood 3.4 mmol/L (3.5-5.5); Total Protein, Blood 5.9 g/dL (6.4-8.2)
[2024-07-17 08:36] LABS: Mean Platelet Volume 11.3 fL (9.1-12.4); Platelet Count 104 K/mm3 (150-400)
[2024-07-17] MEDS ORDERED: Pregabalin 75 MG Cap PO SCH (09:00)
[2024-07-17] MEDS ORDERED: DULoxetine HCL 60 MG Capsule DR PO SCH (09:00)
[2024-07-17] MEDS ORDERED: Enoxaparin 40 MG/0.4 ML SYR SC SCH (09:00)
[2024-07-17] MEDS ORDERED: Midodrine 5 MG Tab PO ONE (09:15)
[2024-07-17] MEDS ORDERED: Potassium Chloride 20 MEQ TabCR PO ONE (10:29)
[2024-07-17] MEDS ORDERED: HYDROCODONE-AC1 EAC7 PO (11:00)
[2024-07-17] MEDS ORDERED: WEGOVY0.25 MG/0. SC (11:05)
[2024-07-17] MEDS ORDERED: Potassium Chlo20 ME1 PO (11:07)
[2024-07-17] MEDS ORDERED: FUROSEMIDE20 MG PO (11:07)
[2024-07-17] MEDS ORDERED: HYDCHL25 PO (11:08)
[2024-07-17] MEDS ORDERED: METOPROLOL SUCC25 MG PO (11:08)
[2024-07-17] MEDS ORDERED: HYDROcodone 5-APAP 325 TAB PO PRN (11:25)
--- NOTE | 2024-07-17 12:11 | NUR ---
NOTIFIED DR. ROSAS OF PATIENT ORTHOSTATIC VITALS THIS AFTERNOON. WHILE STANDING B/P DROPPED TO 74/45.
[2024-07-17] MEDS ORDERED: Midodrine 5 MG Tab PO SCH ×2 (13:00→21:00)
[2024-07-17 15:40] VITALS: BP 111/80
[2024-07-17 17:56] LABS: Bun/Creatinine Ratio 19.3 (12.0-20.0); Calcium, Blood 8.8 mg/dL (8.5-10.1); Creatinine, Blood 0.98 mg/dL (0.40-1.00); Potassium, Blood 3.4 mmol/L (3.5-5.5)
[2024-07-17 19:08] VITALS: BP 109/66
[2024-07-17] MEDS ORDERED: TraZODone HCl 50 MG Tab PO SCH (21:40)
[2024-07-18 03:50] VITALS: BP 144/78
[2024-07-18 04:55] LABS: BASOPHILS ABSOLUTE AUTO 0.05 K/mm3 (0.00-0.23); BASOPHILS PERCENT AUTO 1 % (0-2); EOSINOPHILS ABSOLUTE AUTO 0.15 K/mm3 (0.00-0.68); EOSINOPHILS PERCENT AUTO 4 % (0-6); Hemoglobin 14.4 g/dL (11.5-16.0); IMMATURE GRAN PERCENT AUTO 0 % (0-1); LYMPHOCYTES ABSOLUTE AUTO 1.88 K/mm3 (0.84-5.20); LYMPHOCYTES PERCENT AUTO 46 % (21-46); MONOCYTES ABSOLUTE AUTO 0.38 K/mm3 (0.16-1.47); MONOCYTES PERCENT AUTO 9 % (4-13); Mean Corpuscular HGB 30.7 pg (26.0-34.0); Mean Corpuscular HGB Conc 32.7 g/dL (31.5-36.5); Mean Corpuscular Volume 94 fL (80-100); Mean Platelet Volume 10.9 fL (9.1-12.4); NEUTROPHILS ABSOLUTE AUTO 1.64 K/mm3 (1.96-9.15); NEUTROPHILS PERCENT AUTO 40 % (41-73); Platelet Count 102 K/mm3 (150-400); RDW Standard Deviation 44.5 fL (35.1-46.3); Red Blood Cell Count 4.69 M/mm3 (3.80-5.20)
[2024-07-18 05:31] LABS: Albumin, Blood 2.9 g/dL (3.4-5.0); Albumin/Globulin Ratio 1.1 (0.8-1.8); Bilirubin, Total 0.5 mg/dL (0.1-1.0); Calcium, Blood 8.6 mg/dL (8.5-10.1); Creatinine, Blood 0.9 mg/dL (0.40-1.00); Globulin, Blood 2.7 g/dL (2.2-4.0); Potassium, Blood 3.6 mmol/L (3.5-5.5); Total Protein, Blood 5.6 g/dL (6.4-8.2)
--- NOTE | 2024-07-18 05:48 | NUR ---
PT A&O X4, VS WNL PT PO INTAKE WNL, VOIDING WITHOUT ISSUE, REMAINS ON IVF AT 100ML/HR. DENIED PAIN OR DIZZINESS. PT PLANS TO DISCHARGE TO HOME IS NOW ON MIDORINE FOR LOW B/P, AND DOSE INCREASED ON 07/17 AT HS. LABS WNL, NO OTHER ISSUES THIS SHIFT.
[2024-07-18 07:28] VITALS: BP 150/76
[2024-07-18] MEDS ORDERED: Midodrine 5 MG Tab PO SCH (09:00)
[2024-07-18] MEDS ORDERED: FAMO40 PO (13:33)
[2024-07-18] MEDS ORDERED: Famotidine 20 MG Tab PO PRN (13:40)
[2024-07-18 13:47] VITALS: BP 133/79
--- NOTE | 2024-07-18 14:06 | NUR ---
DR. HUMPHREY NOTIFIED OF TELE CHANGES BLOOD TYPER AND PCU CHARGE VERFIEIED PATIENT BALDWIN A BUNDLE BRANCH FLIP, NOW BUNBLE BRANCH BLOCK, BIGEMINY. DR HUMPHREY MADE AWARE. NO CHANGES TO PLAN OF CARE. CONTUNUING TO MONITOR ON CONTUNUOUS TELE.
--- NOTE | 2024-07-18 17:50 | NUR ---
DISCHARGE NOTE ORTHOSTATIC VITALS TAKEN PRIOR TO D/C. LYING 122/85 HR 73, SITTING 119/87 HR 80, STANDING 105/66 HR 91. AFTER A SHORT WALK IN ESCOBAR 112/76 HR 129. PATINET TO FOLLOW UP WITH PCP WITHIN 1 WEEK. PATIENT EDUCATED ON DISCHARGE PACKET AND INSTRUCTIONS. EDUCATED ON PARAMETERS FOR MIDODRINE. IV REMOVED. ESCORTED DOWN VIA WHEELCHAIR. SIGNIFICANT OTHER PICKED UP. NO NEW QUESTIONS OR CONCERNS.
[2024-07-18] MEDS ORDERED: TraZODone HCl 50 MG Tab PO SCH (21:00)
== END 2024-07-18 17:45 | disposition home health service (06) ==
LOC: ER 19:47 → MEDS 19:48
PROVIDERS: Emergency Medicine; ADMIT Internal Medicine
DX: I95.1 Orthostatic hypotension (principal); I13.0 Hypertensive heart and chronic kidney disease with heart failure and stage 1 through stage 4 chronic kidney disease, or unspecified chronic kidney disease; N18.32 Chronic kidney disease, stage 3b; I50.22 Chronic systolic (congestive) heart failure; N17.9 Acute kidney failure, unspecified; I25.2 Old myocardial infarction; M51.369 Other intervertebral disc degeneration, lumbar region without mention of lumbar back pain or lower extremity pain; K21.9 Gastro-esophageal reflux disease without esophagitis; F17.210 Nicotine dependence, cigarettes, uncomplicated; Z95.0 Presence of cardiac pacemaker; Z79.899 Other long term (current) drug therapy
CPT/HCPCS: 36415; 71046; 80048; 80053; 82533; 82947; 83690; 83880; 84484; 85025; 93005; 93010; 93306; 96372; 97110; 97161; 97530; 99285-25; A9270; G0378; J1650; J7030